=== PATIENT | male | born 1950 | race Native Hawaiian/Other Pacific Islander ===

== ENCOUNTER → 2017-05-27 | Outpatient (CLI) | payer MEDICARE, BC | END | disposition home or self-care (01) | LOC: LABWHC1 08:51 | PROVIDERS: ATTEND Internal Medicine Critical Care Medicine | DX: E11.9 Type 2 diabetes mellitus without complications (principal) | CPT/HCPCS: 36415; 83036 ==

== ENCOUNTER → 2017-10-08 | Outpatient (CLI) | payer MEDICARE, BC ==
[2017-10-08 11:56] LABS: Hemoglobin A1C 7.5 % (4.0-6.0)
== END | disposition home or self-care (01) ==
LOC: LABWHC1 07:16
PROVIDERS: ATTEND Internal Medicine Critical Care Medicine
DX: E11.9 Type 2 diabetes mellitus without complications (principal)
CPT/HCPCS: 36415; 83036

== ENCOUNTER → 2017-12-11 | Outpatient (CLI) | payer MEDICARE ==
[2017-12-11 12:52] LABS: Hemoglobin A1C 7.4 % (4.0-6.0)
== END | disposition home or self-care (01) ==
LOC: LABWHC1 07:02
PROVIDERS: ATTEND Internal Medicine Critical Care Medicine
DX: E11.9 Type 2 diabetes mellitus without complications (principal)
CPT/HCPCS: 36415; 82947; 83036

== ENCOUNTER → 2018-04-23 | Outpatient (CLI) | payer BC, MEDICARE ==
[2018-04-23 19:06] LABS: Hemoglobin A1C 7.5 % (4.0-6.0)
== END | disposition home or self-care (01) ==
LOC: LABWHC1 07:17
PROVIDERS: ATTEND Internal Medicine Critical Care Medicine
DX: E11.9 Type 2 diabetes mellitus without complications (principal)
CPT/HCPCS: 36415; 83036

== ENCOUNTER → 2018-08-06 | Outpatient (CLI) | payer MEDICARE ==
[2018-08-06 12:05] LABS: Albumin 4.3 g/dL (3.80-4.90); Albumin/Globulin Ratio 1.59 (1.20-2.10); Anion Gap 8.2 mmol/L (4.00-12.00); Carbon Dioxide 25.8 mmol/L (21.6-31.8); Globulin 2.7 g/dL (1.6-3.3); LDL Cholesterol,Calculated 89.6 mg/dL (0.0-131.0); Potassium 4.9 mmol/L (3.5-5.5); Total Bilirubin 0.7 mg/dL (0.3-1.2); VLDL Calculation 32.4 mg/dL (5.00-40.00)
[2018-08-06 14:03] LABS: Hemoglobin A1C 7.1 % (4.0-6.0)
== END | disposition home or self-care (01) ==
LOC: LABWHC1 07:07
PROVIDERS: ATTEND Internal Medicine Interventional Cardiology
DX: E78.2 Mixed hyperlipidemia (principal); I10 Essential (primary) hypertension; E11.9 Type 2 diabetes mellitus without complications
CPT/HCPCS: 36415; 80053; 80061; 83036

== ENCOUNTER → 2018-08-20 | Outpatient (CLI) | payer MEDICARE ==
[2018-08-20 08:09] LABS: HCT 45.4 % (39.0-53.0); HGB 14.8 gm/dL (13.0-17.5); MCHC 32.5 g/dL (31.0-37.0); MCV 89.2 fL (80.0-100.0); Mean Platelet Volume 8.7; Platelet Count 161 k/uL (150-450); RBC 5.09 m/uL (4.30-5.90); RDW 13.8 % (11.5-15.5); WBC 8.1 k/uL (3.8-10.6)
[2018-08-20 08:21] LABS: Potassium 4.9 mmol/L (3.5-5.1)
== END | disposition home or self-care (01) ==
LOC: LABPAT 07:31
PROVIDERS: ATTEND Internal Medicine Interventional Cardiology
DX: Z01.812 Encounter for preprocedural laboratory examination (principal); R94.39 Abnormal result of other cardiovascular function study; I10 Essential (primary) hypertension; E78.2 Mixed hyperlipidemia
CPT/HCPCS: 36415; 80051; 82565; 84520; 85027

== ENCOUNTER → 2018-09-02 | Day surgery (SDC) | payer MEDICARE ==
[2018-08-31 09:59] VITALS: BMI 28.5
[~2018-09-02] MED LIST: ALPRAZolam 0.25 MG TAB PO PRN; ALPRAZolam 0.5 MG TAB PO PRN; ASPIRIN 325 MG TAB PO ONE; ASPIRIN 325 MG TAB PO STA; ATORVASTATIN 10 MG TAB PO SCH; ATORVASTATIN 80 MG TAB PO STA; CARVEDILOL 3.125 MG TAB PO SCH; HEPARIN SODIUM 1,000 UN/ML (10ML VL) IV ONE; HEPARIN SODIUM 1,000 UN/ML (10ML VL) ONE; IOPAMIDOL-370 125ML BTL INJ ONE; LIDOCAINE 1% INJ 10MG/ML (20 ML MDV) ONE; LIDOCAINE 1% INJ 10MG/ML (20 ML MDV) SQ ONE; LISINOPRIL 5 MG TAB PO SCH; NITROGLYCERIN SL TABS 0.4 MG TAB SUBLINGUAL PRN; NON-FORMULARY DRUG (Insulin Glargine 30 UNIT) SQ SCH; PANTOPRAZOLE 40 MG TABLET PO SCH; RX INFO: IV CONTRAST WAS GIVEN 1 EACH MISC MISCELLANE PRN; SODIUM CHLORIDE 0.9% 1,000 ML IV ONE; SODIUM CHLORIDE 0.9% 1,000 ML IV SCH; SODIUM CHLORIDE 0.9% 1,000 ML in EMPTY BAG 1 BAG IV ONE; VERAPAMIL 2.5 MG/ML 2 ML AMP ONE; VERAPAMIL SYRINGE (5 MG/10 ML) INTRAARTER ONE; fentaNYL (PF) 50 MCG/ML 2 ML AMP IV ONE; fentaNYL (PF) 50 MCG/ML 2 ML AMP ONE
[2018-09-02 11:05] LABS: Glucose,Whole Blood 148 mg/dL (75-99)
[2018-09-02 11:10] VITALS: TEMP 97.8
--- NOTE | 2018-09-02 13:40 | CC ---
CARDIAC CATHETERIZATION REPORT Mr. Fairbanks is a 67-year-old male with known history of hypertension, hyperlipidemia, diabetes mellitus, who recently was found to have worsening in his left ventricular systolic function and evidence of inferior wall defect. In view of that, recommendation was made regarding cardiac catheterization. The procedure as well as the risks and complications were discussed with the patient who is in full understanding and agreement. PROCEDURE: Patient was brought to clinical laboratory technologist in a fasting semi-sedated state after receiving fentanyl and Benadryl and achieving moderate conscious sedated state. Using Xylocaine anesthesia in the Seldinger technique, a 6-Thai sheath was introduced in the right radial artery. Selective right and left angiography was performed using 5-Thai 3.5 bend right and left Reema catheter. Multiple views of the coronary artery including hemiaxial views obtained. Following that 5-Thai tight pigtail catheter was introduced in the left ventricle and a 30-degree MENCHACA view of the left ventricle was obtained. Following that, catheter and sheath were removed. Hemostasis was obtained with deployment of a TR band. There was no immediate complication. Patient is returned to his room in stable condition. Of note, the patient received 5000 units of intravenous heparin as well as intra-arterial verapamil. FINDINGS: LEFT MAIN: This is a large-sized vessel trifurcating left circumflex, left anterior descending artery and ramus intermedius. Left main coronary artery has no evidence of high-grade stenosis. LEFT ANTERIOR DESCENDING ARTERY: This is a large-sized vessel reaching toward the apex with a wraparound apex segment giving rise to a large diagonal branch proximally. The left anterior descending artery has a 20% plaque in the mid segment without any evidence of high-grade stenosis. LEFT CIRCUMFLEX: This is a large nondominant vessel that has no evidence of high-grade stenosis. RAMUS INTERMEDIUS: This is a moderately-sized vessel that has no evidence of high-grade stenosis. RIGHT CORONARY ARTERY: This is a dominant vessel large in caliber bifurcating distally PDA and posterolateral segment and branches, tortuous proximally. The right coronary artery in mid segment has a 20% to 30% plaque. The rest of the vessel has no high- grade stenosis LEFT VENTRICULOGRAM: Left ventriculogram was performed in 30-degree MENCHACA view and revealed a mild global hypokinesis. The estimated ejection fraction 45%. There was arrhythmia induced mitral regurgitation. HEMODYNAMICS: There was no gradient across the aortic valve. The left ventricular end- diastolic pressure was 16 to18 mmHg. CONCLUSION: 1. Mild coronary disease involving the left anterior descending artery and the right coronary artery. 2. Mildly impaired left ventricular systolic function. RECOMMENDATION: In view of finding anatomy, recommend to continue medical therapy with aggressive coronary risk modifications that have been initiated. Those findings and recommendations were discussed with the patient and his family and are in full understanding and agreement. Duration of procedure is 20 minutes. MMODL / IJN: [id number] /
[2018-09-02 15:38] LABS: Glucose,Whole Blood 120 mg/dL (75-99)
[2018-09-02 18:29] VITALS: RESP 16
[2018-09-02 18:30] VITALS: BP 149/94; PULSE 63
== END | disposition home or self-care (01) ==
LOC: CATHCVL 10:35
PROVIDERS: ATTEND Internal Medicine Interventional Cardiology
DX: I25.10 Atherosclerotic heart disease of native coronary artery without angina pectoris (principal); I42.8 Other cardiomyopathies; I34.0 Nonrheumatic mitral (valve) insufficiency; I12.9 Hypertensive chronic kidney disease with stage 1 through stage 4 chronic kidney disease, or unspecified chronic kidney disease; E11.22 Type 2 diabetes mellitus with diabetic chronic kidney disease; N18.9 Chronic kidney disease, unspecified; Z79.4 Long term (current) use of insulin; E78.2 Mixed hyperlipidemia; Z72.0 Tobacco use; M19.90 Unspecified osteoarthritis, unspecified site; Z79.82 Long term (current) use of aspirin; Z79.899 Other long term (current) drug therapy; Z88.6 Allergy status to analgesic agent
CPT/HCPCS: 93458; C1894; C1769; J2001; J3010; J1644; Q9967

== ENCOUNTER → 2018-11-02 | Outpatient (CLI) | payer MEDICARE ==
[2018-11-02 07:27] LABS: Basophils # (A) 0.1 k/uL (0-0.2); Basophils % (A) 1 %; Eosinophils # (A) 0.3 k/uL (0-0.7); Eosinophils % (A) 4 %; HCT 44.5 % (39.0-53.0); Lymphocytes # (A) 2.3 k/uL (1.0-4.8); Lymphocytes % (A) 30 %; MCH 29.4 pg (25.0-35.0); MCHC 33.7 g/dL (31.0-37.0); MCV 87.3 fL (80.0-100.0); Mean Platelet Volume 8.5; Monocytes # (A) 0.5 k/uL (0-1.0); Monocytes % (A) 6 %; Neutrophils # (A) 4.4 k/uL (1.3-7.7); Neutrophils % (A) 57 %; Platelet Count 176 k/uL (150-450); RBC 5.09 m/uL (4.30-5.90); RDW 13.6 % (11.5-15.5); WBC 7.8 k/uL (3.8-10.6)
[2018-11-02 07:34] LABS: Appearance,Urine Clear (Clear); Bilirubin,Urine Negative (Negative); Blood,Urine Negative (Negative); Color,Urine Light Yellow; Glucose,Urine (UA) Negative (Negative); Ketones,Urine Negative (Negative); Leukocyte Esterase,Urine Negative (Negative); Mucus,Urine Rare /hpf; Nitrite,Urine Negative (Negative); Protein,Urine 1+ (Negative); RBC,Urine 1 /hpf (0-5); Urobilinogen,Urine <2.0 mg/dL (<2.0); WBC,Urine <1 /hpf (0-5)
[2018-11-02 11:17] LABS: Iron Saturation 18.82 (15.00-50.00)
[2018-11-02 11:25] LABS: Vitamin D 25 Hydroxy 19.9 ng/mL (30.0-100.0)
[2018-11-02 11:30] LABS: Albumin 4.3 g/dL (3.80-4.90); Albumin/Globulin Ratio 1.72 (1.60-3.17); Anion Gap 8.1 mmol/L (4.00-12.00); Calcium 9.3 mg/dL (8.7-10.3); Carbon Dioxide 22.9 mmol/L (21.6-31.8); Globulin 2.5 g/dL (1.6-3.3); Phosphorus 2.9 mg/dL (2.4-5.1); Potassium 4.6 mmol/L (3.5-5.5); Total Bilirubin 0.9 mg/dL (0.3-1.2); Total Protein 6.8 g/dL (6.2-8.2); Uric Acid 7.8 mg/dL (3.7-8.7)
[2018-11-02 11:32] LABS: Hemoglobin A1C 7.5 % (4.0-6.0)
[2018-11-02 11:49] LABS: Parathyroid Hormone Intact 91.1 pg/mL (14.0-72.0)
== END | disposition home or self-care (01) ==
LOC: LABWHC1 06:51
PROVIDERS: ATTEND Internal Medicine Critical Care Medicine
DX: I10 Essential (primary) hypertension (principal); E11.9 Type 2 diabetes mellitus without complications; N28.89 Other specified disorders of kidney and ureter
CPT/HCPCS: 36415; 80053; 81001; 82306; 82728; 83036; 83540; 83550; 83735; 83970; 84100; 84550; 85025

== ENCOUNTER → 2018-11-26 | Outpatient (CLI) | payer MEDICARE ==
--- NOTE | 2018-11-26 13:16 | US ---
EXAMINATION TYPE: US kidneys/renal and bladder DATE OF EXAM: 11/26/2018 COMPARISON: 09/28/2014 CLINICAL HISTORY: N18.3 Chronic kidney disease stage 3; diabetic, agent orange exposure, stage 3 CKD EXAM MEASUREMENTS: Right Kidney: 10.6 x 5.8 x 5.7 cm Left Kidney: 10.7 x 6.2 x 4.9 cm Post Void Residual Volume: 127.7 mL Right Kidney: multiple renal cysts with largest simple cyst noted at mid pole = 3.5 x 3.7 x 3.5cm Left Kidney: prominent renal pelvis at 1.3cm. Bladder: wnl Bilateral Jets seen: yes Normal Post Void Residual: no as volume is greater than 50.0ml. No nephrolithiasis is seen. The urinary bladder is anechoic. Bilateral ureteral jets are seen. IMPRESSION: 1. There is increased renal cortical echogenicity correlate for chronic medical renal disease. 2. Right renal cysts which have a simple appearance. 3. Minimal left pelvocaliectasis.
== END | disposition home or self-care (01) ==
LOC: RADUSWWP 12:26
PROVIDERS: ATTEND Internal Medicine Nephrology
DX: N28.1 Cyst of kidney, acquired (principal); N18.3 Chronic kidney disease, stage 3 (moderate)
CPT/HCPCS: 76770

== ENCOUNTER 2019-02-05 13:59 | Emergency (ER) | payer MEDICARE ==
[2019-02-05 14:31] VITALS: BP 119/82; PULSE 98; RESP 18; TEMP 98.2
[2019-02-05] MEDS ORDERED: LIDOCAINE 1% INJ 10MG/ML (20 ML MDV) SQ ONE (14:42)
--- NOTE | 2019-02-05 15:37 | ED ---
General Adult HPI - General Chief complaint: Wound/Laceration Stated complaint: Rt middle finger lac Time Seen by Provider: 02/05/19 14:31 Source: patient Mode of arrival: ambulatory Limitations: no limitations - History of Present Illness Initial comments: Patient is 68-year-old male presents emergency Department with a laceration to his right third finger. Patient reports he was moving a metal objects when one of them slipped and lacerated his finger. Patient reports mild bleeding at the site of injury. Patient reports full range of motion. Patient is not on blood thinners. Patient reports his tetanus status is up-to-date. Patient denies any numbness or tingling at the site of injury. Patient reports the pain is a 4 throbbing. Patient denies taking any medication to alleviate his symptoms. - Related Data Home Medications Medication Instructions Recorded Confirmed Carvedilol [Coreg] 3.125 mg PO BID 08/31/18 09/02/18 Insulin Glargine [Lantus] 30 unit SQ HS 08/31/18 09/02/18 Lisinopril [Prinivil] 5 mg PO DAILY 08/31/18 09/02/18 Pantoprazole [Protonix] 40 mg PO DAILY 08/31/18 09/02/18 Rosuvastatin [Crestor] 5 mg PO DAILY 08/31/18 09/02/18 Allergies Allergy/AdvReac Type Severity Reaction Status Date / Time aspirin Allergy sneezing & Verified 02/05/19 14:28 runny nose. Review of Systems ROS Statement: Those systems with pertinent positive or pertinent negative responses have been documented in the HPI. ROS Other: All systems not noted in ROS Statement are negative. Past Medical History Past Medical History: GERD/Reflux, Hypertension, Renal Disease History of Any Multi-Drug Resistant Organisms: None Reported Past Surgical History: Hernia Repair, Joint Replacement, Orthopedic Surgery Additional Past Surgical History / Comment(s): right testical removed, hiatle hernia repair Past Psychological History: No Psychological Hx Reported Smoking Status: Never smoker Past Alcohol Use History: None Reported General Exam - General Exam Comments Initial Comments: General: Well-developed well-nourished distress HEENT: Normocephalic/atraumatic, PERLL, pharynx erythema, swallowing well, EAC no erythema, no exudates, TM clear, no cervical lymph nodes Neck: Supple, nontender, trachea midline Chest/Lungs: Normal respirations, no signs of respiratory distress clear to auscultation bilaterally no wheezes, rales, rhonchi Cardiac: Regular rate and rhythm, normal S1-S2, no murmurs rubs or gallops Abdomen/GI: Soft nontender, bowel sounds equal or quadrant x4, no guarding, no rebound no CVA tenderness Musculoskeletal: Upper 57 a laceration on the palmar aspect of the right third distal digit, no active bleeding, full range of motion, no foreign bodies detected, Skin: Warmth, no rashes or lesions, no cyanosis or diaphoresis Neurologic: AAO x 3, CN 2-12 intact, Psychiatric: Mood and affect normal, judgment normal Limitations: no limitations Course Vital Signs 02/05/19 14:28 Temperature 98.2 F Pulse Rate 98 Respiratory 18 Rate Blood Pressure 119/82 O2 Sat by Pulse 98 Oximetry Procedures - Laceration Laceration #1 Consent Obtained: verbal consent Indication: laceration Site: hand (Right third digit) Size (cm): 1 Description: linear Depth: simple, single layer Sedation/Analgesia: none Anesthetic Used: lidocaine 1% Anesthesia Technique: local infiltration Amount (mls): 5 Pre-repair: irrigated extensively Type of Sutures: nylon Size of Sutures: 4-0 Number of Sutures: 5 Technique: simple, interrupted Patient Tolerated Procedure: well Medical Decision Making - Medical Decision Making Patient is a 68-year-old male presenting to emergency Department with a laceration to the palmar aspect of his right third digit. The laceration site was repaired with 3 sutures. Patient tolerated the procedure well. The laceration site was thoroughly irrigated. Patient advised to follow-up with primary care. Patient advised to return to emergency department in 10 days for suture removal. Strict return parameters were thoroughly discussed with patient was understanding and agreeable. Case discussed with physician. Disposition Clinical Impression: Laceration Disposition: HOME SELF-CARE Condition: Stable Instructions (If sedation given, give patient instructions): Care For Your Stitches (DC), Laceration (DC) Additional Instructions: Please follow with primary care. Please return to emergency department for suture removal 10 days or sooner if symptoms worsen. Please follow proper wound care structures. Is patient prescribed a controlled substance at d/c from ED?: No Referrals: Angelito Johns DO [Primary Care Provider] - 1-2 days Time of Disposition: 15:37
== END 2019-02-05 15:52 | disposition home or self-care (01) ==
LOC: EC 13:59
DX: S61.212A Laceration without foreign body of right middle finger without damage to nail, initial encounter (principal); I10 Essential (primary) hypertension; Z79.02 Long term (current) use of antithrombotics/antiplatelets; Z79.4 Long term (current) use of insulin; Z79.899 Other long term (current) drug therapy; Z88.6 Allergy status to analgesic agent; W26.8XXA Contact with other sharp object(s), not elsewhere classified, initial encounter
CPT/HCPCS: 99282; 12001; J2001

== ENCOUNTER → 2019-08-05 | Outpatient (CLI) | payer MEDICARE ==
[2019-08-05 16:33] LABS: African American GFR (CKD) 46.3 (60.0-200.0); Albumin 4.1 g/dL (3.80-4.90); Albumin/Globulin Ratio 1.86 (1.60-3.17); Anion Gap 8.4 mmol/L (4.00-12.00); BUN/Creat Ratio 14.12 Ratio (12.00-20.00); Carbon Dioxide 24.6 mmol/L (21.6-31.8); Chol/HDL Ratio 3.14; Globulin 2.2 g/dL (1.6-3.3); LDL Cholesterol,Calculated 71.2 mg/dL (0.0-131.0); Potassium 4.7 mmol/L (3.5-5.5); Total Bilirubin 0.5 mg/dL (0.2-1.2); Total Protein 6.3 g/dL (6.2-8.2); VLDL Calculation 20.8 mg/dL (5.00-40.00)
[2019-08-05 17:55] LABS: Urine Creatinine 41.5 mg/dL
[2019-08-05 19:08] LABS: Hemoglobin A1C 6.6 % (4.0-6.0)
== END | disposition home or self-care (01) ==
LOC: LABWHC1 07:34
PROVIDERS: ATTEND Internal Medicine
DX: E11.65 Type 2 diabetes mellitus with hyperglycemia (principal)
CPT/HCPCS: 36415; 80053; 80061; 82043; 82570; 83036

== ENCOUNTER → 2019-08-26 | Outpatient (CLI) | payer MEDICARE ==
[2019-08-26 08:29] LABS: Basophils % (A) 1 %; Eosinophils # (A) 0.4 k/uL (0-0.7); Eosinophils % (A) 5 %; HCT 44.4 % (39.0-53.0); HGB 14.5 gm/dL (13.0-17.5); Lymphocytes # (A) 2.2 k/uL (1.0-4.8); Lymphocytes % (A) 28 %; MCH 29.8 pg (25.0-35.0); MCHC 32.8 g/dL (31.0-37.0); MCV 90.9 fL (80.0-100.0); Monocytes # (A) 0.3 k/uL (0-1.0); Monocytes % (A) 4 %; Neutrophils # (A) 4.6 k/uL (1.3-7.7); Neutrophils % (A) 60 %; Platelet Count 172 k/uL (150-450); RBC 4.88 m/uL (4.30-5.90); RDW 13.6 % (11.5-15.5); WBC 7.7 k/uL (3.8-10.6)
[2019-08-26 08:38] LABS: Appearance,Urine Clear (Clear); Bilirubin,Urine Negative (Negative); Blood,Urine Negative (Negative); Color,Urine Light Yellow; Glucose,Urine (UA) 4+ (Negative); Ketones,Urine Negative (Negative); Leukocyte Esterase,Urine Negative (Negative); Nitrite,Urine Negative (Negative); PH, Urine 6.5 (5.0-8.0); Protein,Urine Trace (Negative); Specific Gravity,Urine 1.009 (1.001-1.035); Urobilinogen,Urine <2.0 mg/dL (<2.0)
[2019-08-26 09:25] LABS: Protein/Creatinine Ratio,Urine 0.343
[2019-08-26 16:01] LABS: % Iron Saturation 17.8 (15.00-50.00); African American GFR (CKD) 40.5 (60.0-200.0); Albumin 4.1 g/dL (3.80-4.90); Anion Gap 8.3 mmol/L (4.00-12.00); BUN/Creat Ratio 14.21 Ratio (12.00-20.00); Calcium 8.6 mg/dL (8.7-10.3); Carbon Dioxide 24.7 mmol/L (21.6-31.8); Magnesium 2.4 mg/dL (1.5-2.4); Non-African American GFR(CKD) 34.9 (60.0-200.0); Phosphorus 3.8 mg/dL (2.4-5.1); Potassium 4.7 mmol/L (3.5-5.5); Uric Acid 6.4 mg/dL (3.7-8.7)
[2019-08-26 16:10] LABS: Ferritin 29.8 ng/mL (22.0-322.0)
== END | disposition home or self-care (01) ==
LOC: LABWHC1 07:28
PROVIDERS: ATTEND Internal Medicine Nephrology
DX: E05.80 Other thyrotoxicosis without thyrotoxic crisis or storm (principal); N18.3 Chronic kidney disease, stage 3 (moderate); D63.1 Anemia in chronic kidney disease; M10.9 Gout, unspecified; N39.0 Urinary tract infection, site not specified; R80.9 Proteinuria, unspecified
CPT/HCPCS: 36415; 80048; 81003; 82040; 82306; 82570; 82728; 83540; 83550; 83735; 83970; 84100; 84156; 84550; 85025

== ENCOUNTER → 2019-10-01 | Outpatient (CLI) | payer MEDICARE ==
[2019-10-01 11:10] LABS: African American GFR (CKD) 38.1 (60.0-200.0); Anion Gap 10.1 mmol/L (4.00-12.00); Calcium 9.4 mg/dL (8.7-10.3); Carbon Dioxide 25.9 mmol/L (21.6-31.8); Non-African American GFR(CKD) 32.8 (60.0-200.0); Potassium 4.9 mmol/L (3.5-5.5)
[2019-10-01 11:11] LABS: Urine Creatinine 54.9 mg/dL
[2019-10-01 17:44] LABS: Hemoglobin A1C 6.5 % (4.0-6.0)
== END | disposition home or self-care (01) ==
LOC: LABWHC1 07:11
PROVIDERS: ATTEND Internal Medicine
DX: E11.65 Type 2 diabetes mellitus with hyperglycemia (principal)
CPT/HCPCS: 36415; 80048; 82043; 82570; 83036

== ENCOUNTER → 2019-12-20 | Outpatient (CLI) | payer MEDICARE ==
[2019-12-20 07:56] LABS: Basophils # (A) 0.1 k/uL (0-0.2); Basophils % (A) 1 %; Eosinophils # (A) 0.3 k/uL (0-0.7); Eosinophils % (A) 4 %; HCT 48.4 % (39.0-53.0); HGB 15.3 gm/dL (13.0-17.5); Lymphocytes # (A) 1.8 k/uL (1.0-4.8); Lymphocytes % (A) 23 %; MCH 29.3 pg (25.0-35.0); MCHC 31.6 g/dL (31.0-37.0); MCV 92.7 fL (80.0-100.0); Mean Platelet Volume 8.9; Monocytes # (A) 0.4 k/uL (0-1.0); Monocytes % (A) 5 %; Neutrophils # (A) 5.1 k/uL (1.3-7.7); Neutrophils % (A) 65 %; Platelet Count 174 k/uL (150-450); RBC 5.22 m/uL (4.30-5.90); RDW 13.6 % (11.5-15.5); WBC 7.8 k/uL (3.8-10.6)
[2019-12-20 07:59] LABS: Appearance,Urine Clear (Clear); Bilirubin,Urine Negative (Negative); Blood,Urine Negative (Negative); Color,Urine Light Yellow; Glucose,Urine (UA) 4+ (Negative); Ketones,Urine Negative (Negative); Leukocyte Esterase,Urine Negative (Negative); Nitrite,Urine Negative (Negative); PH, Urine 6.5 (5.0-8.0); Protein,Urine Negative (Negative); Specific Gravity,Urine 1.007 (1.001-1.035); Urobilinogen,Urine <2.0 mg/dL (<2.0)
[2019-12-20 09:35] LABS: Protein/Creatinine Ratio,Urine 0.405
[2019-12-20 15:16] LABS: % Iron Saturation 20.29 (15.00-50.00); African American GFR (CKD) 35.6 (60.0-200.0); Albumin 4.1 g/dL (3.80-4.90); Anion Gap 9.1 mmol/L (4.00-12.00); BUN/Creat Ratio 16.19 Ratio (12.00-20.00); Calcium 8.9 mg/dL (8.7-10.3); Carbon Dioxide 22.9 mmol/L (21.6-31.8); Magnesium 2.2 mg/dL (1.5-2.4); Non-African American GFR(CKD) 30.7 (60.0-200.0); Phosphorus 3.6 mg/dL (2.4-5.1); Potassium 4.9 mmol/L (3.5-5.5); Uric Acid 6.9 mg/dL (3.7-8.7)
[2019-12-20 15:25] LABS: Ferritin 39.3 ng/mL (22.0-322.0)
== END | disposition home or self-care (01) ==
LOC: LABWHC1 07:16
PROVIDERS: ATTEND Nurse Practitioner Family
DX: E05.80 Other thyrotoxicosis without thyrotoxic crisis or storm (principal); N18.3 Chronic kidney disease, stage 3 (moderate); M10.9 Gout, unspecified; N39.0 Urinary tract infection, site not specified; R80.9 Proteinuria, unspecified; D64.9 Anemia, unspecified
CPT/HCPCS: 36415; 80048; 81003; 82040; 82306; 82570; 82728; 83540; 83550; 83735; 83970; 84100; 84156; 84550; 85025

== ENCOUNTER → 2020-01-26 | Outpatient (CLI) | payer MEDICARE ==
[2020-01-26 16:22] LABS: African American GFR (CKD) 33.7 (60.0-200.0); Anion Gap 10.1 mmol/L (4.00-12.00); BUN/Creat Ratio 15.91 Ratio (12.00-20.00); Calcium 9.1 mg/dL (8.7-10.3); Carbon Dioxide 22.9 mmol/L (21.6-31.8); Non-African American GFR(CKD) 29.1 (60.0-200.0); Potassium 5.1 mmol/L (3.5-5.5)
[2020-01-26 18:28] LABS: Hemoglobin A1C 6.5 % (4.0-6.0)
== END | disposition home or self-care (01) ==
LOC: LABWHC1 07:40
PROVIDERS: ATTEND Internal Medicine
DX: E11.65 Type 2 diabetes mellitus with hyperglycemia (principal)
CPT/HCPCS: 36415; 80048; 82043; 82570; 83036

== ENCOUNTER → 2020-04-20 | Outpatient (CLI) | payer MEDICARE ==
[2020-04-20 07:46] LABS: Basophils # (A) 0.1 k/uL (0-0.2); Basophils % (A) 1 %; Eosinophils # (A) 0.4 k/uL (0-0.7); Eosinophils % (A) 5 %; HCT 48.1 % (39.0-53.0); HGB 15.7 gm/dL (13.0-17.5); Lymphocytes % (A) 28 %; MCH 30.7 pg (25.0-35.0); MCHC 32.6 g/dL (31.0-37.0); Mean Platelet Volume 8.9; Monocytes # (A) 0.4 k/uL (0-1.0); Monocytes % (A) 6 %; Neutrophils # (A) 4.3 k/uL (1.3-7.7); Neutrophils % (A) 59 %; Platelet Count 161 k/uL (150-450); RBC 5.12 m/uL (4.30-5.90); RDW 13.2 % (11.5-15.5); WBC 7.3 k/uL (3.8-10.6)
[2020-04-20 08:06] LABS: Appearance,Urine Clear (Clear); Bilirubin,Urine Negative (Negative); Blood,Urine Negative (Negative); Color,Urine Light Yellow; Glucose,Urine (UA) 4+ (Negative); Ketones,Urine Negative (Negative); Leukocyte Esterase,Urine Negative (Negative); Nitrite,Urine Negative (Negative); Protein,Urine Negative (Negative); Specific Gravity,Urine 1.009 (1.001-1.035); Urobilinogen,Urine <2.0 mg/dL (<2.0)
[2020-04-20 08:44] LABS: Protein/Creatinine Ratio,Urine 0.318
[2020-04-20 11:05] LABS: % Iron Saturation 23.21 (15.00-50.00); African American GFR (CKD) 40.2 (60.0-200.0); Albumin 4.1 g/dL (3.80-4.90); Anion Gap 6.8 mmol/L (4.00-12.00); BUN/Creat Ratio 16.84 Ratio (12.00-20.00); Calcium 9.3 mg/dL (8.7-10.3); Carbon Dioxide 23.2 mmol/L (21.6-31.8); Magnesium 2.1 mg/dL (1.5-2.4); Non-African American GFR(CKD) 34.7 (60.0-200.0); Phosphorus 3.5 mg/dL (2.4-5.1); Potassium 4.7 mmol/L (3.5-5.5); Uric Acid 6.6 mg/dL (3.7-8.7)
[2020-04-20 11:13] LABS: Ferritin 33.4 ng/mL (22.0-322.0)
== END | disposition home or self-care (01) ==
LOC: LABWHC1 07:10
PROVIDERS: ATTEND Nurse Practitioner Family
DX: E55.9 Vitamin D deficiency, unspecified (principal); E05.80 Other thyrotoxicosis without thyrotoxic crisis or storm; D63.1 Anemia in chronic kidney disease; N18.30 Chronic kidney disease, stage 3 unspecified; M10.9 Gout, unspecified; N39.0 Urinary tract infection, site not specified
CPT/HCPCS: 36415; 80048; 81003; 82040; 82306; 82570; 82728; 83540; 83550; 83735; 83970; 84100; 84156; 84550; 85025

== ENCOUNTER → 2020-04-25 | Outpatient (CLI) | payer MEDICARE ==
[2020-04-25 11:08] LABS: Chol/HDL Ratio 3.16; LDL Cholesterol,Calculated 79.8 mg/dL (0.0-131.0); VLDL Calculation 15.2 mg/dL (5.00-40.00)
[2020-04-25 11:16] LABS: T4, Free (Free Thyroxine) 1.2 ng/dL (0.80-1.80)
[2020-04-25 11:17] LABS: PSA Annual Screen 1.3 ng/mL (0.0-4.0)
== END | disposition home or self-care (01) ==
LOC: LABWHC1 07:26
PROVIDERS: ATTEND Internal Medicine Critical Care Medicine
DX: E78.5 Hyperlipidemia, unspecified (principal); E13.42 Other specified diabetes mellitus with diabetic polyneuropathy; C62.90 Malignant neoplasm of unspecified testis, unspecified whether descended or undescended; I10 Essential (primary) hypertension; N40.0 Benign prostatic hyperplasia without lower urinary tract symptoms; N28.89 Other specified disorders of kidney and ureter; Z12.5 Encounter for screening for malignant neoplasm of prostate
CPT/HCPCS: 84439; 80061; 84443; 36415; G0103

== ENCOUNTER → 2021-04-24 | Outpatient (CLI) | payer MEDICARE ==
[2021-04-24 07:49] LABS: Creatinine,Urine Random 47.8 mg/dL; Protein/Creatinine Ratio,Urine 0.377
[2021-04-24 08:31] LABS: Appearance,Urine Clear (Clear); Bilirubin,Urine Negative (Negative); Blood,Urine Negative (Negative); Color,Urine Light Yellow; Glucose,Urine (UA) 4+ (Negative); Ketones,Urine Negative (Negative); Leukocyte Esterase,Urine Negative (Negative); Nitrite,Urine Negative (Negative); PH, Urine 6.5 (5.0-8.0); Protein,Urine Negative (Negative); Urobilinogen,Urine <2.0 mg/dL (<2.0)
[2021-04-24 16:15] LABS: Basophils # (A) 0.05 X 10*3/uL (0.00-0.10); Basophils % (A) 0.5 %; Eosinophils % (A) 3.8 %; HCT 46.2 % (39.6-50.0); HGB 14.8 g/dL (13.0-17.0); Lymphocytes # (A) 2.03 X 10*3/uL (0.90-5.00); Lymphocytes % (A) 19.2 %; MCH 30.1 pg (27.0-32.0); MCV 93.9 fL (80.0-97.0); Mean Platelet Volume 11.9 fL (9.5-12.2); Monocytes # (A) 0.76 X 10*3/uL (0.20-1.00); Monocytes % (A) 7.2 %; Neutrophils # (A) 7.28 X 10*3/uL (1.80-7.70); Neutrophils % (A) 68.9 %; Platelet Count 166 X 10*3/uL (140-440); RBC 4.92 X 10*6/uL (4.40-5.60); RDW 13.1 % (11.5-14.5); WBC 10.56 X 10*3/uL (4.50-10.00)
[2021-04-24 17:44] LABS: % Iron Saturation 21.9 (15.00-50.00); African American GFR (CKD) 36.2 (60.0-200.0); BUN/Creat Ratio 13.59 Ratio (12.00-20.00); Calcium 8.9 mg/dL (8.7-10.3); Carbon Dioxide 20.8 mmol/L (21.6-31.8); Ferritin 45.7 ng/mL (22.0-322.0); Magnesium 2.3 mg/dL (1.5-2.4); Non-African American GFR(CKD) 31.2 (60.0-200.0); Phosphorus 3.2 mg/dL (2.4-5.1); Potassium 5.1 mmol/L (3.5-5.5); Uric Acid 6.7 mg/dL (3.7-8.7)
== END | disposition home or self-care (01) ==
LOC: LABWHC1 07:16
PROVIDERS: ATTEND Nurse Practitioner Family
DX: E05.80 Other thyrotoxicosis without thyrotoxic crisis or storm (principal); N18.30 Chronic kidney disease, stage 3 unspecified; R80.9 Proteinuria, unspecified; D64.9 Anemia, unspecified; N39.0 Urinary tract infection, site not specified; M10.9 Gout, unspecified
CPT/HCPCS: 36415; 80048; 81003; 82040; 82306; 82570; 82728; 83540; 83550; 83735; 83970; 84100; 84156; 84550; 85025

== ENCOUNTER → 2023-12-01 | Outpatient (CLI) | payer MEDICARE ==
--- NOTE | 2023-12-04 22:23 | CT ---
EXAMINATION TYPE: CT ChestAbdPelvis wo con DATE OF EXAM: 12/04/2023 INDICATION: Lytic lesions COMPARISON: 03/22/2013 CT DLP: 1337 mGycm CONTRAST: Performed without Oral Contrast. TECHNIQUE: Axial images at 5 mm thick sections. Reconstructed images in the coronal plane. Delayed images through the kidneys. FINDINGS: CT CHEST: There is a debris-filled esophagus extending to the stomach. This is dilated and extends from the tho racic inlet. Finding appears stable from comparison Portion of the thyroid visualized is normal. Scattered infiltrates are within the anterior and posterior midlungs bilaterally. Some pulmonary fibr osis dependent lung bases. No enlarged mediastinal or hilar adenopathy is evident. The ascending aorta diameter at the level of the main pulmonary artery is 4.4 cm. The main pulmonary artery diameter at the bifurcation is 3.5 cm. Coronary artery calcifications present CT ABDOMEN: Liver: Normal Spleen: Normal Pancreas: Normal Adrenal glands: The adrenal glands are normal. Gallbladder: Normal Kidneys: No masses are evident. No hydronephrosis is present. 4.7 cm lateral upper pole right renal cyst nursed cyst inferior pole right kidney measuring 4.0 and 2.9 cm. No renal stones are evident. Aorta: Vascular calcification is within the aorta. Inferior vena cava: Normal. CT PELVIS: Loops of bowel within the abdomen and pelvis are normal. Studies without oral contrast limiting b owel evaluation. Appendix: Normal as visualized. Urinary bladder: Normal. Genitourinary structures: Prostate is prominent Osseous structures: No suspicious lytic or sclerotic lesions. Septi degenerative changes are in the l ower lumbar spine. C2 is out of the field of view. IMPRESSION: 1. No suspicious primary or metastatic lesions.
== END | disposition home or self-care (01) ==
LOC: RADCTMAIN 11:30
PROVIDERS: ATTEND Orthopaedic Surgery
CPT/HCPCS: 71250; 74176

== ENCOUNTER → 2023-12-19 | Outpatient (CLI) | payer MEDICARE ==
--- NOTE | 2023-12-20 08:18 | MR ---
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 COMPARISON: 04/24/2023. TECHNIQUE: Multi planar, multi sequence imaging was performed utilizing: T1-weighted, T2-weighted, an d turbo inversion recovery imaging of the cervical spine. IV Contrast: 8.5 cc Gadavist (none if empty) FINDINGS: Alignment: The cervical vertebral bodies have preserved heights. Straightening of the cervical alignm ent. Bones: Scattered Modic endplate changes with osteophytes and disc space narrowing. Multilevel degener ative disc disease is noted and most pronounced at the C5-C7 vertebral levels. No abnormal postcontrast enhancement. Cord: The spinal cord is unremarkable with regards to their signal intensity and morphology. Discs: Intervertebral disc signal is maintained. C2-C3: No significant disc pathology. The spinal canal is patent. Bilateral facet and uncovertebral joint arthropathy are present with mild bilateral neural foraminal stenosis. C3-C4: No significant disc pathology. The spinal canal is patent. Bilateral facet and uncovertebral joint arthropathy are present with mild to moderate bilateral neural foraminal stenosis. C4-C5: A disc osteophyte complex is present with mild spinal canal stenosis. Bilateral facet and unc overtebral joint arthropathy are present with moderate left and mild to moderate neural foraminal zully nosis. C5-C6: A disc osteophyte complex is present with mild spinal canal stenosis. Bilateral facet and unc overtebral joint arthropathy are present with moderate to severe bilateral neural foraminal stenosis. C6-C7: A disc osteophyte complex is present with moderate spinal canal stenosis. Bilateral facet and uncovertebral joint arthropathy are present with moderate to severe bilateral neural foraminal steno sis. C7-T1: No significant disc pathology. The spinal canal is patent. No neural foraminal stenosis. Other: None. IMPRESSION: 1. Moderate spinal canal stenosis at the level of C6 secondary to opacify complexes and posterior ost eophyte. No evidence for disc herniation. No abnormal postcontrast enhancement. 2. Moderate disc degeneration with associated osteoarthritic changes. Neural foraminal foraminal sten osis worse at C5-6 and C6-C7 with moderate to severe bilateral and moderate left C4-C5.
== END | disposition home or self-care (01) ==
LOC: RADMRIMAIN 18:51
PROVIDERS: ATTEND Orthopaedic Surgery
DX: M47.812 Spondylosis without myelopathy or radiculopathy, cervical region (principal); M50.30 Other cervical disc degeneration, unspecified cervical region; M99.71 Connective tissue and disc stenosis of intervertebral foramina of cervical region; M25.78 Osteophyte, vertebrae
CPT/HCPCS: 72156; A9585

== ENCOUNTER → 2024-01-23 | Outpatient (CLI) | payer MEDICARE ==
[2024-01-23 10:21] LABS: Basophils # (A) 0.04 X 10*3/uL (0.00-0.10); Basophils % (A) 0.5 %; Eosinophils # (A) 0.22 X 10*3/uL (0.04-0.35); Eosinophils % (A) 2.9 %; HCT 46.9 % (39.6-50.0); HGB 15.3 g/dL (13.0-17.0); Lymphocytes # (A) 1.78 X 10*3/uL (0.90-5.00); Lymphocytes % (A) 23.6 %; MCH 30.3 pg (27.0-32.0); MCHC 32.6 g/dL (32.0-37.0); MCV 92.9 FL (80.0-97.0); Mean Platelet Volume 11.4 FL (9.5-12.2); Monocytes # (A) 0.55 X 10*3/uL (0.20-1.00); Monocytes % (A) 7.3 %; NRBC Per 100 WBC 0 X 10*3/uL (0.00-0.01); Neutrophils % (A) 64.9 %; Platelet Count 176 X 10*3/uL (140-440); RBC 5.05 X 10*6/uL (4.40-5.60); RDW 13.5 % (11.5-14.5); WBC 7.55 X 10*3/uL (4.50-10.00)
[2024-01-23 11:27] LABS: Creatinine,Urine Random 55.9 mg/dL; Protein/Creatinine Ratio,Urine 0.483
[2024-01-23 12:19] LABS: Appearance,Urine Clear (Clear); Bilirubin,Urine Negative (Negative); Blood,Urine Negative (Negative); Color,Urine Yellow (Yellow); Ketones,Urine Negative (Negative); Nitrite,Urine Negative (Negative); Specific Gravity,Urine 1.017 (1.001-1.030); Urobilinogen,Urine 0.2 E.U./DL
[2024-01-23 15:46] LABS: % Iron Saturation 18.75 (15.00-50.00); Albumin 4.1 g/dL (3.8-4.9); Blood Urea Nitrogen 20.8 mg/dL (9.0-27.0); Calcium 8.9 mg/dL (8.7-10.3); Carbon Dioxide 21.7 mmol/L (21.6-31.8); Chloride 104 mmol/L (96-109); Ferritin 59.2 ng/mL (22.0-322.0); Glucose 177 mg/dL (70-110); Iron 69 UG/DL (65-175); Sodium 138 mmol/L (135-145); Total Iron Binding Capacity 368 UG/DL (228-460); Uric Acid 7.1 mg/dL (3.7-8.7)
== END | disposition home or self-care (01) ==
LOC: LABWHC1 07:10
PROVIDERS: ATTEND Nurse Practitioner Family
DX: E55.9 Vitamin D deficiency, unspecified (principal); N25.81 Secondary hyperparathyroidism of renal origin; M10.9 Gout, unspecified; N18.30 Chronic kidney disease, stage 3 unspecified; D63.1 Anemia in chronic kidney disease; R80.9 Proteinuria, unspecified
CPT/HCPCS: 36415; 80048; 81003; 82040; 82306; 82570; 82728; 83540; 83550; 83735; 83970; 84100; 84156; 84550; 85025

== ENCOUNTER → 2024-03-04 | Outpatient (CLI) | payer MEDICARE | END | disposition home or self-care (01) | LOC: LABPRL 12:00 | PROVIDERS: ATTEND Orthopaedic Surgery | CPT/HCPCS: 87070 ==

== ENCOUNTER 2024-03-09 05:33 | Day surgery (SDC) | payer MEDICARE ==
--- NOTE | 2024-03-08 13:55 | P.HPOR ---
History of Present Illness H&P Date: 03/03/24 DEMOGRAPHICS: Height: 60 Weight: 189 kg/m2 BMI: 25.6 kg/m2 Occupation: Retired VAS: 10 CHIEF COMPLAINT: Preoperative evaluation for C4-7 ACDF Spine Surgery Clinical and Risk Review Andrew Fairbanks is a 73 year old male presenting for evaluation of neck and upper extremity pain, bilateral upper extremity numbness and tingling. It was my pleasure to have seen and examined Andrew. In our visit today we have had a chance to go over subjective complaints, physical examination findings and treatments including the natural course history without intervention and various interventional options. The patients imaging demonstrates the following findings: Multilevel degenerative changes from C3-7 with the worst from C4-7 with disc degeneration, spondylosis, disc height collapse as well as central and b/l foraminal stenosis that is moderate to severe due to degenerative changes and disc herniation. There are beginning stages of myelomalacia noted at these levels as well. No fractures noted. There is a C2 lesion noted that has been worked up and is likely benign OA changes with cystic formation of the C2 posterior body. There are no extension or evidence of further changes or fracture in this area. On a physical exam, Andrew demonstrates the following findings: A continued throbbing, burning pain around the posterior and lateral aspects of the neck that radiates down into the bilateral upper extremities. He notes continued numbness and tingling throughout the upper extremities. He notes decreased hand dexterity and progressive upper extremity weakness. He states his symptoms have become debilitating over the last several months. He states his symptoms worsen after all activity. He notes severe sleep disturbances related to his ongoing pain and associated symptoms. I have explained to the patient that as their condition progresses it will cause further neurological deficits and eventual paralysis. Based on the patients imaging, physical exam, and the rapid progression and disabling nature of their symptoms, at this time I recommend surgery in the form of a: C4-7 ACDF I discussed the risk and benefits of this procedure at length with Andrew Fairbanks. The patient agreed to consider pursuing the procedure above mentioned. Prior to surgery, they should follow up with her PCP (Cardio, ID, IM etc) for clearance. Questions were invited and answered, and the patient wishes to proceed as outlined below. Currently, I am recommending: C4-7 ANTERIOR CERVICAL DECOMPRESSION & FUSION Review of surgical risks and benefits as well as an educational packet on the proposed surgical procedure. Risks: All surgical procedures come with inherent risks, including those related to positioning, anesthesia, intraoperative findings, and postoperative complications. It is important to understand that surgery does not come with any guarantee of a successful outcome as complications and adverse events are always possible. The patient was given a handout in the office today discussing the surgical procedure and risks associated with the intervention, both of which were discussed with the patient. These risks include but are not limited to the following: Experiencing same, different or even worse symptoms in back, neck, arms, or legs compared to before surgery. Requiring further surgery or other forms of treatment presently or at some time in the future at same or other levels of the intended spine surgery. On an extreme but fortunately relatively rare basis severe complications such as blindness, stroke, heart attack, temporary and/or permanent nerve injury, paralysis, coma, or may occur, sometimes without known explanation. Surgical complications may include but are not limited to risk of infection, fluid accumulation in the surgical dissection site, including a seroma or hematoma, that requires additional surgery, wound drainage, bleeding, new numbness or weakness, vision changes/loss, spinal fluid leakage, non-healing and/or infected incision, headaches, difficulty or inability to swallow, hoarseness, hemopneumothorax, pneumothorax, impotence, retrograde ejaculation, vaginal dryness; injury to nerves, spinal cord, blood vessels, lymphatics or other vital organs (i.e., bowel injury, injury to the great vessels); heterotop ic bone formation; complications related to the hardware such as screws, rods, cages including misplaced hardware, device failure, instrumentation at the wrong spine level, hardware fracture/breakage, or hardware loosening; vertebral failure of the spinal column above or below the newly placed hardware; retained surgical instrumentations or devices and the need for further surgery. Medical risks of the planned spine surgery include but are not limited to generalized Infections to the whole body or local areas outside of the surgical site (sepsis), heart attack, bleeding, anaphylaxis, meningitis, seizure, epilepsy, hearing loss, burn cali, laceration of the head or other areas of the body, bruising, hypersensitivity of the skin, bladder over distension; allergic reaction; shoulder injury related to positioning; fat, blood and air clots to other areas of the body like heart, lungs, brain; failure of internal organs such as lungs, kidneys, liver and excessive bleeding. If blood transfusions are necessary, note that transfusions may cause intolerance reactions such as anaphylaxis or other complex reactions. Despite best efforts, the results of spine surgery might not heal in terms of bone, soft tissues such as skin, fascia, ligaments, and joints. Additionally, in order to achieve best possible results, spine surgery may be carried out beyond the initially planned levels and involve decompression, fusion including insertion of hardware at levels other than the original intended area of surgical interest change some portions of the procedure in order to ensure the best possible outcomes. With spine surgery and spinal fusion, there are different off label uses of instrumentation (devices, implants and hardware) as well as biological substances (bone morphogenic proteins, demineralized bone matrix) as well as using extra bone from allograft sources (i.e. cadaver bone) or autograft (iliac crest bone, ribs, or the spine itself). The patient has been given information about these practices and their inherent risks and benefits. The patient has had a chance to review all the listed information, has been given print outs detailing this information, and has had all his/her questions answered to their satisfaction. It was my pleasure to have seen and examined Andrew. In our visit today we have had a chance to go over my understanding of our patient's current condition, the natural course history without intervention and various interventional options. Questions were invited and answered, and the patient wishes to proceed as outlined above. I have seen and examined the patient for 25 minutes and we have spent more than 50% of the time in repeat and detailed counseling about the patient's condition, its natural course history without and as much as can be pr edicted with surgery and re-review of various surgical treatment options. In conclusion, Andrew requested we proceed with the above suggested surgery and are willing to accept risks and limitations of the suggested surgery as to the nature of the disease process and our best attempts at treatment for the condition. IMPRESSION: It was my pleasure to have seen and examined Andrew Fairbanks. I reviewed the patient's clinical syndrome, physical findings, and imaging studies during the appointment today. It is my impression that the patient has a diagnosis of. 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 Questions were invited and answered, and the patient wishes to proceed as outlined above. I will be sure to keep you updated after the patient returns here for further follow-up. Thank you again for your referral. Please do not hesitate to contact me if you have any further questions. Signed and authenticated by: Mar 03, 2024 12:00?PM EDT DO Margarita Tineo [facility] [address], [address] [address] This document is confidential, intended only for the named recipient(s) and may contain information that is privileged or exempt from disclosure under applicable law. If you are not the intended recipient(s), you are notified that the dissemination, distribution or copying of this information is strictly prohibited. If you received this message in error, please notify the sender then delete this message. Past Medical History Past Medical History: GERD/Reflux, Hypertension, Renal Disease History of Any Multi-Drug Resistant Organisms: None Reported Past Surgical History: Hernia Repair, Joint Replacement, Orthopedic Surgery Additional Past Surgical History / Comment(s): right testical removed, hiatle hernia repair Past Psychological History: No Psychological Hx Reported Smoking Status: Never smoker Past Alcohol Use History: None Reported Past Drug Use History: None Reported Medications and Allergies Home Medications Medication Instructions Recorded Confirmed Type Insulin Glargine [Lantus Vial] 30 unit SQ HS 08/31/18 09/02/18 History Pantoprazole [Protonix] 40 mg PO DAILY 08/31/18 09/02/18 History Rosuvastatin [Crestor] 5 mg PO DAILY 08/31/18 09/02/18 History carvediloL [Coreg] 3.125 mg PO BID 08/31/18 09/02/18 History lisinopriL [Prinivil] 5 mg PO DAILY 08/31/18 09/02/18 History HYDROcodone/APAP 7.5-325MG [[place] 1 tab PO Q6HR PRN 3 Days #12 tab 04/25/23 Rx 7.5-325] Allergies Allergy/AdvReac Type Severity Reaction Status Date / Time aspirin Allergy sneezing & Verified 04/24/23 20:35 runny nose. Physical Examination Osteopathic Statement: *. No significant issues noted on an osteopathic structural exam other than those noted in the History and Physical/Consult.
[~2024-03-09 05:33] MED LIST changes: +ACETAMINOPHEN TAB 500 MG TAB PO PRN; -ALPRAZolam 0.25 MG TAB PO PRN; -ALPRAZolam 0.5 MG TAB PO PRN; -ASPIRIN 325 MG TAB PO ONE; -ASPIRIN 325 MG TAB PO STA; -ATORVASTATIN 10 MG TAB PO SCH; -ATORVASTATIN 80 MG TAB PO STA; -CARVEDILOL 3.125 MG TAB PO SCH; -HEPARIN SODIUM 1,000 UN/ML (10ML VL) IV ONE; -HEPARIN SODIUM 1,000 UN/ML (10ML VL) ONE; -IOPAMIDOL-370 125ML BTL INJ ONE; -LIDOCAINE 1% INJ 10MG/ML (20 ML MDV) ONE; -LIDOCAINE 1% INJ 10MG/ML (20 ML MDV) SQ ONE; -LISINOPRIL 5 MG TAB PO SCH; -NITROGLYCERIN SL TABS 0.4 MG TAB SUBLINGUAL PRN; -NON-FORMULARY DRUG (Insulin Glargine 30 UNIT) SQ SCH; +ONDANSETRON 4 MG/2 ML VIAL IVP PRN; -PANTOPRAZOLE 40 MG TABLET PO SCH; -RX INFO: IV CONTRAST WAS GIVEN 1 EACH MISC MISCELLANE PRN; -SODIUM CHLORIDE 0.9% 1,000 ML IV ONE; -SODIUM CHLORIDE 0.9% 1,000 ML IV SCH; -SODIUM CHLORIDE 0.9% 1,000 ML in EMPTY BAG 1 BAG IV ONE; +TRANEXAMIC 1,000 MG/100ML-NACL 1,000 MG in SALINE 1 100ML.BAG IVPB PRN; -VERAPAMIL 2.5 MG/ML 2 ML AMP ONE; -VERAPAMIL SYRINGE (5 MG/10 ML) INTRAARTER ONE; -fentaNYL (PF) 50 MCG/ML 2 ML AMP IV ONE; -fentaNYL (PF) 50 MCG/ML 2 ML AMP ONE
[2024-03-09] MEDS ORDERED: LIDOCAINE 1% (10MG/ML) FOR IV START INTRADERMA PRN (06:09)
[2024-03-09] MEDS: SODIUM CHLORIDE 0.9% 1,000 ML IV SCH (06:30)
[2024-03-09 06:32] LABS: Glucose,Whole Blood 161 mg/dL (70-110)
[2024-03-09] MEDS: IV FLUID CONTINUATION 1,000 ML IV ONE ×2 (06:35)
[2024-03-09] MEDS: LACTATED RINGERS 1,000 ML IV SCH (06:48)
[2024-03-09] MEDS: ONDANSETRON 4 MG/2 ML VIAL IVP ONE (06:48)
[2024-03-09] MEDS: GABAPENTIN 300 MG CAP PO PRN (06:48)
[2024-03-09] MEDS: MIDAZOLAM 2 MG/2 ML VIAL IV PRN (07:11)
--- NOTE | 2024-03-09 07:15 | P.PN ---
Progress Note - Text Progress Note Date: 03/09/24 H&P UPDATE: Pt s/e in PREOP. Discussed risks and benefits again of surgery as well as options and surgical plan. He is on-board. He states he is ready for surgery. H&P reivewed. No significant changes.
[2024-03-09 07:22] LABS: HCT 45.5 % (39.0-53.0); HGB 15.3 gm/dL (13.0-17.5); MCH 31.4 pg (25.0-35.0); MCHC 33.7 g/dL (31.0-37.0); MCV 93.1 fL (80.0-100.0); Mean Platelet Volume 8.9; Platelet Count 164 k/uL (150-450); RBC 4.88 m/uL (4.30-5.90); RDW 13.2 % (11.5-15.5); WBC 9.5 k/uL (3.8-10.6)
[2024-03-09] MEDS ORDERED: ROCURONIUM 10 MG/ML (5 ML VIAL) IV ONE (07:30)
[2024-03-09] MEDS ORDERED: SUCCINYLCHOLINE CHLORIDE 200 MG/10 ML VIAL IV ONE (07:30)
[2024-03-09] MEDS ORDERED: KETAMINE HCL IN 0.9 % NACL 50 MG/5 ML SYRINGE ONE (07:30)
[2024-03-09] MEDS ORDERED: TRANEXAMIC 1,000 MG/100ML-NACL PREMIX BAG ONE (07:30)
[2024-03-09] MEDS ORDERED: NEOSTIGMINE 1 MG/ML 10 ML VIAL ONE (07:30)
[2024-03-09] MEDS ORDERED: LIDOCAINE 1% INJ 10MG/ML (20 ML MDV) ONE (07:30)
[2024-03-09] MEDS ORDERED: PROPOFOL 10 MG/ML 20 ML VIAL IV ONE (07:30)
[2024-03-09] MEDS ORDERED: fentaNYL (PF) 50 MCG/ML 2 ML AMP ONE (07:30)
[2024-03-09] MEDS ORDERED: GLYCOPYRROLATE 0.2 MG/ML 2 ML VIAL ONE (07:30)
[2024-03-09 07:45] LABS: Chloride 106 mmol/L (98-107)
[2024-03-09 07:47] LABS: African American GFR (CKD) 47 (>60 ml/min/1.73 sqM); Anion Gap 9 mmol/L; Blood Urea Nitrogen 20 mg/dL (9-20); Calcium 9.3 mg/dL (8.4-10.2); Carbon Dioxide 22 mmol/L (22-30); Glucose 167 mg/dL (74-99); Non-African American GFR(CKD) 41 (>60 ml/min/1.73 sqM); Potassium 3.8 mmol/L (3.5-5.1); Sodium 137 mmol/L (137-145)
[2024-03-09 07:53] LABS: Partial Thromboplastin Time 23.6 sec (22.0-30.0); Prothrombin Time 10.8 sec (10.0-12.5)
[2024-03-09] MEDS: THROMBIN (BOVINE) 5,000 UNIT VIAL TOPICAL ONE (10:17)
--- NOTE | 2024-03-09 10:21 | P.OP ---
Date of Procedure: 03/09/24 Preoperative Diagnosis: Current Active Problems Cervical disc disease (Acute) Cervical radiculopathy (Acute) Cervical spondylosis with myelopathy and radiculopathy (Acute) Cervical stenosis of spine (Acute) Neck pain (Acute) Postoperative Diagnosis: Current Active Problems Cervical disc disease (Acute) Cervical radiculopathy (Acute) Cervical spondylosis with myelopathy and radiculopathy (Acute) Cervical stenosis of spine (Acute) Neck pain (Acute) Procedure(s) Performed: C4-5 ANTERIOR CERVICAL ARTHRODESIS C5-6 ANTERIOR CERVICAL ARTHRODESIS C6-7 ANTERIOR CERVICAL ARTHRODESIS C4-7 ANTERIOR CERVICAL INSTRUMENTATION C4-5, C5-6, C6-7 INSERTION OF BIOMECHANICAL DEVICE, CAGE X3 USE OF IONM USE OF IO MICROSCOPE Implants: JETT CASCADIA 10MM, 8MM, 8MM CAGE JETT OZARK PLATE, 14/16MM SCREWS BIO4 DBM AUTOGRAFT Anesthesia: GETA Surgeon: Vineet Smith Supervisor [employer] #1: Charlie Ibarra (WAS PRESENT AND ASSISTED WITH ALL ASPECTS OF THE CASE FROM POSITION TO DRESSING PLACEMENT) Estimated Blood Loss (ml): 20 IV fluids (ml): 1,500 Urine output (ml): 250 Pathology: none sent Condition: stable Disposition: PACU Indications for Procedure: Andrew Fairbanks is a 73 year old male presenting for evaluation of neck and upper extremity pain, bilateral upper extremity numbness and tingling. It was my pleasure to have seen and examined Andrew. In our visit today we have had a chance to go over subjective complaints, physical examination findings and treatments including the natural course history without intervention and various interventional options. The patients imaging demonstrates the following findings: Multilevel degenerative changes from C3-7 with the worst from C4-7 with disc degeneration, spondylosis, disc height collapse as well as central and b/l foraminal stenosis that is moderate to severe due to degenerative changes and disc herniation. There are beginning stages of myelomalacia noted at these levels as well. No fractures noted. There is a C2 lesion noted that has been worked up and is likely benign OA changes with cystic formation of the C2 posterior body. There are no extension or evidence of further changes or fracture in this area. On a physical exam, Andrew demonstrates the following findings: A continued throbbing, burning pain around the posterior and lateral aspects of the neck that radiates down into the bilateral upper extremities. He notes continued numbness and tingling throughout the upper extremities. He notes decreased hand dexterity and progressive upper extremity weakness. He states his symptoms have become debilitating over the last several months. He states his symptoms worsen after all activity. He notes severe sleep disturbances related to his ongoing pain and associated symptoms. I have explained to the patient that as their condition progresses it will cause further neurological deficits and eventual paralysis. Based on the patients imaging, physical exam, and the rapid progression and disabling nature of their symptoms, at this time I recommend surgery in the form of a: C4-7 ACDF I discussed the risk and benefits of this procedure at length with Andrew Fairbanks. The patient agreed to consider pursuing the procedure above mentioned. Prior to surgery, they should follow up with her PCP (Cardio, ID, IM etc) for clearance. Questions were invited and answered, and the patient wishes to proceed as outlined below. Currently, I am recommending: C4-7 ANTERIOR CERVICAL DECOMPRESSION & FUSION Description of Procedure: C4-7 ACDF plate screws The patient was seen and examined in the preoperative area. All preoperative protocols were followed. Informed consent was obtained, risks and benefits of the procedure were discussed at length. Risks including bleeding infection damage to the surrounding tissue and risk of reoperation were discussed with the patient. Risk of anesthesia up to and including was discussed with the patient. These are outlined in the risk review. They were willing to accept these risks and all the risks of surgery. The patient was given a weight-based dose of antibiotics in the form of 2 g Ancef. The patient was seen and evaluated by the anesthesia team who deemed them fit for surgery. The site was marked, the patient was willing to proceed with the procedure. The patient was transferred to the operative suite by the Department of anesthesia. They were then drifted off to sleep by the department anesthesia and GETA was performed. The patient tolerated this well. Ricardo catheter was placed by nursing staff, a-traumatically. Once confirmation of lines and ventilation the patient was transferred to a Supine Clint table very carefully. All bony prominences including wrists, elbows, axilla, chest, hips, and thighs, and feet were padded very well. Special attention was paid to the genitalia, and these were padded accordingly. SCDs were placed on bilateral lower extremities and were connected. Arms were well padded and placed at their side thumbs up. Once in position, again we confirmed good ventilation capabilities and that lines were running appropriately. The patients Cervical spine was then exposed. 1010s were placed outlining the incision site. Standard alcohol was used to clean the incision site and allowed to dry. C-arm was used to bio-esme the patient and confirm level for incision which was marked with a skin marker. Operative briefing was performed with all teams and everyone in agreement to proceed. The patient was then prepped and draped in a normal sterile fashion. Timeout was then performed, and all parties agreed with the procedure to be performed. Transverse skin incision was then made on the right side of the patient's neck 3 cm and dissection taken down to the platysma which was split transversely. Sub platysma flap was made, and interval identified between SCM and medial structures. Omohyoid was visualized and protected. Blunt dissection taken down to the anterior cervical fascia which was identified. Blunt probe was then placed and lateral image taken which confirmed levels for operation. These levels were then marked with a bovi. Subperiosteal dissection of the longissimus muscles were then done over these levels identifying uncovertebral joints bilaterally. Retractor was then placed deep to these muscles and held in place with a bed arm. Microscope was then brought in for visualization. [place] pins were placed into C6 and C7 and gentle distraction taken out over the levels. Carlo rongeur used to remove disc material. Operating microscope brought in for visualization. Complete discectomy performed at this level with curette, rongure and pituitary. High speed sabrina used to remove osteophytes anteriorly and posteriorly until PLL was identified. 6-0 up curette then used to identify the canal and ressect the PLL. 2-0 and 3-0 Kerrison used then to remove PLL and disc herniation and performed b/l foraminotomies. Once good decompression was accomplished, meticulous hemostasis was performed. Sizers were then placed under lateral fluoroscopy until the desired height and lordosis. Cage was then selected, packed with autograft and allograft and placed under lateral imaging. Once in good position it was tested and stable. Motors run before and after cage placement were stable. The wound was irrigated, and autograft placed lateral to the cage anteriorly for fusion. [place] pin was then removed from C7 and placed into C5 and bone wax placed in their void. Gentle distraction taken out over C5-6 now. Complete discectomy done at C5-6 as described including decompression, b/l foraminotomies and PLL resection. Burring of endplates was minimal, osteophytes removed as described. Spacers were then sized and placed under lateral imaging. Cage selected, packed with graft and placed under lateral images. Once in position, meticulous hemostasis performed, and motors remained stable before and after cage placement. AP image confirmed good placement of cages. Wound was irrigated. [place] pin was then removed from C6 and placed into C4. At C4-5 now, gentle distraction is taken out over the levels. Carlo rongeur used to remove disc material.. Complete discectomy performed at this level with curette, rongure and pituitary. High speed sabrina used to remove osteophytes anteriorly and posteriorly until PLL was identified. 6-0 up curette then used to identify the canal and ressect the PLL. 2-0 and 3-0 Kerrison used then to remove PLL and disc herniation and performed b/l foraminotomies. Once good decompression was accomplished, meticulous hemostasis was performed. Sizers were then placed under lateral fluoroscopy until the desired height and lordosis. Cage was then selected, packed with autograft and allograft and placed under lateral imaging. Once in good position it was tested and stable. Motors run before and after cage placement were stable. The wound was irrigated, and autograft placed lateral to the cage anteriorly for fusion. A separate, non-integrated plate was then selected and sized under lateral image. The plate was then placed with screws. Fixed screws drilled into C7 b/l and screws placed. Then into C6 C5 and C4 bilaterally. All locking mechanisms were set, and all screws had good purchase. Final AP and lateral images taken confirmed good placement of hardware and good reduction and rastafarian of height. The wound was then irrigated copiously with NSS. Surgicel placed deep in the wound. A deep drain placed out a separate incision and sewed into place. Layered closure then performed with 3-0 Vicryl in the platysma and subQ tissue. 4-0 stratafix was then placed in the subcuticular skin. The wound was then cleaned, dried and skin glue placed. Once glue dried telfa, 4x4, and tegaderms were placed for dressing. Wound edges approximated well. The patient was then transferred back to their hospital bed a-traumatically. The drain continued to hold suction. They were placed in a soft collar. They were then awakened by the department of anesthesia having tolerated the procedure well without complications.
--- NOTE | 2024-03-09 10:30 | FL ---
EXAMINATION TYPE: FL guidance operating room, XR cervical spine limited Intraoperative/procedural flu oroscopic services were provided. Total fluoroscopy time is 24 seconds with a total of 3 submitted im ages to PACS. Please see the operative/procedural note for further details. DAP: 0.7733 Gycm2
[2024-03-09 10:57] LABS: Glucose,Whole Blood 138 mg/dL (70-110)
[2024-03-09] MEDS: HYDROmorphone 0.5 MG/0.5 ML SYRINGE IVP PRN (10:59)
[2024-03-09] MEDS ORDERED: ONDANSETRON 4 MG/2 ML VIAL IVP PRN (11:12)
[2024-03-09] MEDS ORDERED: HYDROmorphone 0.5 MG/0.5 ML SYRINGE IVP PRN (11:12)
[2024-03-09] MEDS ORDERED: HYDROmorphone 1 MG/ML 1 ML SYRINGE IVP PRN (11:12)
[2024-03-09] MEDS ORDERED: MAGNESIUM HYDROXIDE 2,400 MG/30 ML CUP PO PRN (11:12)
[2024-03-09] MEDS ORDERED: MAG HYDROX/AL HYDROX/SIMETH 30 ML CUP PO PRN (11:12)
[2024-03-09] MEDS: fentaNYL (PF) 50 MCG/ML 2 ML AMP IVP PRN (15:49)
[2024-03-09 17:01] LABS: Glucose,Whole Blood 153 mg/dL (70-110)
[2024-03-09] MEDS: DEXAMETHASONE SOD PHOSPHATE 4 MG/ML 1 ML VIAL IV ONE (17:49)
[2024-03-09] MEDS: ACETAMINOPHEN TAB 325 MG TAB PO SCH (17:49)
[2024-03-09] MEDS: KETOROLAC 15 MG/ML 1 ML VIAL IVP SCH (17:50)
[2024-03-09] MEDS ORDERED: DEXTROSE 50% SYRINGE 50 ML IVP PRN ×2 (17:51)
--- NOTE | 2024-03-09 17:56 | P.CONS ---
History of Present Illness - Reason for Consult Consult date: 03/09/24 - History of Present Illness 73 year old M with PMH of DM, HTN, HLD presents to [facility] for elective surgery. He underwent C4-[address] Smith[address] [facility] consulted for medical management of this patient. Patient reports well controlled pain in his neck. No other complaints. General: non toxic, no distress, appears at stated age Derm: warm, dry Head: atraumatic, normocephalic, symmetric, C-collar intact Eyes: EOMI, no lid lag, anicteric sclera Mouth: no lip lesion, mucus membranes moist Cardiovascular: S1S2 reg, no murmur Lungs: CTA bilateral, no rhonchi, no rales , no accessory muscle use Ext: no gross muscle atrophy, no edema, no contractures Neuro: no focal neuro deficits Psych: Alert, oriented, appropriate affect +Ricardo Based on my assessment of this patient, this patient meets a moderate complexity level of care. Hypertension: Restart Coreg 6.25 mg PO BID and Lisinopil 5 mg PO QD. Diabetes mellitus: ISS. Accuchecks ACHS. Hypoglycemic precautions. Neuropathy: Gabapentin 300 mg PO BID. GERD: Protonix 40 mg PO QD. Status post C4-7 ACDF managed by Orthopedic surgery CODE STATUS: FULL CODE DVT Prophylaxis: Per Ortho Sx. GI Prophylaxis: Protonix PO Designated medical POA if patient is not able to make medical decisions for themselves: Past Medical History Past Medical History: GERD/Reflux, Hypertension, Renal Disease History of Any Multi-Drug Resistant Organisms: None Reported Past Surgical History: Hernia Repair, Joint Replacement, Orthopedic Surgery Additional Past Surgical History / Comment(s): right testical removed, hiatle hernia repair Past Psychological History: No Psychological Hx Reported Smoking Status: Never smoker Past Alcohol Use History: None Reported Past Drug Use History: None Reported Medications and Allergies Home Medications Medication Instructions Recorded Confirmed Type Pantoprazole [Protonix] 40 mg PO DAILY 08/31/18 03/09/24 History Rosuvastatin [Crestor] 5 mg PO DAILY 08/31/18 03/09/24 History carvediloL [Coreg] 6.25 mg PO BID 08/31/18 03/09/24 History lisinopriL [Prinivil] 5 mg PO DAILY 08/31/18 03/09/24 History Empagliflozin [Jardiance] 10 mg PO DAILY 03/08/24 03/09/24 History Ferrous Sulfate [Iron] 325 mg PO BID 03/08/24 03/09/24 History Ferrous Sulfate [Iron] 325 mg PO HS 03/08/24 03/09/24 History Gabapentin 300 mg PO BID 03/08/24 03/09/24 History metFORMIN HCL [Glucophage] 500 mg PO BID 03/08/24 03/09/24 History Allergies Allergy/AdvReac Type Severity Reaction Status Date / Time aspirin Allergy sneezing & Verified 03/09/24 06:10 runny nose. NSAIDS (Non-Steroidal AdvReac Unknown Verified 03/09/24 06:10 Anti-Inflamma Physical Exam Vitals: Vital Signs Temp Pulse Pulse Pulse Resp BP BP 03/09/24 16:43 97.4 F L 60 17 158/81 03/09/24 16:00 62 16 137/88 03/09/24 15:00 61 16 146/89 03/09/24 14:00 53 L 16 148/82 03/09/24 13:00 67 16 151/77 03/09/24 12:30 56 L 16 148/76 03/09/24 12:00 60 16 146/82 03/09/24 11:30 58 L 14 121/80 03/09/24 11:15 58 L 14 121/72 03/09/24 11:00 68 14 131/76 03/09/24 10:45 68 14 125/86 03/09/24 10:40 97.3 F L 68 14 122/78 03/09/24 07:16 65 15 136/88 03/09/24 06:07 97.3 F L 75 16 139/91 Pulse Ox 03/09/24 16:43 99 03/09/24 16:00 97 03/09/24 15:00 96 03/09/24 14:00 98 03/09/24 13:00 98 03/09/24 12:30 97 03/09/24 12:00 97 03/09/24 11:30 96 03/09/24 11:15 96 03/09/24 11:00 94 L 03/09/24 10:45 96 03/09/24 10:40 96 03/09/24 07:16 95 03/09/24 06:07 96 Intake and Output 03/09/24 03/09/24 03/09/24 06:59 14:59 22:59 Intake Total 200 1350 Output Total 320 Balance 200 1030 Intake: IV 200 1350 Output: Urine 300 Estimated Blood Loss 20 Other: Weight 85 kg 85 kg Results CBC & Chem 7: 03/09/24 06:17 03/09/24 06:17 Labs: Abnormal Lab Results - Last 24 Hours (Table) 03/09/24 03/09/24 03/09/24 Range/Units 06:15 06:17 10:55 Creatinine 1.63 H (0.66-1.25) mg/dL Glucose 167 H (74-99) mg/dL POC Glucose (mg/dL) 161 H 138 H (70-110) mg/dL 03/09/24 Range/Units 16:59 Creatinine (0.66-1.25) mg/dL Glucose (74-99) mg/dL POC Glucose (mg/dL) 153 H (70-110) mg/dL
[2024-03-09] MEDS: GABAPENTIN 300 MG CAP PO SCH ×2 (18:04→20:43)
[2024-03-09 20:20] LABS: Glucose,Whole Blood 160 mg/dL (70-110)
[2024-03-09] MEDS: carvediloL 6.25 MG TAB PO SCH (20:31)
[2024-03-09] MEDS: FERROUS SULFATE 325 MG TAB PO SCH ×2 (20:33→20:43)
[2024-03-09] MEDS: HYDROcodone/APAP 7.5-325MG 1 EACH TAB PO PRN (21:19)
[2024-03-09] MEDS: BENZOCAINE/MENTHOL LOZENG 1 EACH LOZENGE MUCOUS MEM PRN (21:20)
[2024-03-09] MEDS: INSULIN ASPART (NovoLOG) 100 UNIT/ML VIAL SQ SCH (21:22)
[2024-03-10 06:16] LABS: Glucose,Whole Blood 102 mg/dL (70-110)
[2024-03-10] MEDS: SENNOSIDES-DOCUSATE SODIUM 1 EACH TAB PO SCH (07:54)
[2024-03-10] MEDS: ATORVASTATIN 10 MG TAB PO SCH (07:54)
[2024-03-10] MEDS: lisinopriL 5 MG TAB PO SCH (07:54)
[2024-03-10] MEDS: PANTOPRAZOLE 40 MG TABLET PO SCH (07:54)
--- NOTE | 2024-03-10 09:40 | P.PN ---
Subjective Progress Note Date: 03/10/24 Principal diagnosis: C4-7 spondylosis with stenosis Bilateral upper extremity weakness Cervical myelopathy Cervicalgia C2 lesion Patient seen and examined this morning. Patient is sitting up in chair at bedside. He states that he did work with physical therapy this morning and ambulated in hallway and tolerated activity very well. Patient does report that his pain is managed on current regimen. Surgical incision to the anterior cervical spine, edges are well-approximated with glue intact. REBEKA drain has been removed. New dressing has been applied. Hard cervical collar is intact. Patient does notice improvement in his cervical pain and bilateral upper extre mity radiculopathy since the procedure. Patient states that he feels comfortable going home. Discharge instructions have been discussed. Objective - Vital Signs Vital signs: Vital Signs Temp 98.4 F 03/10/24 07:27 Pulse 65 03/10/24 07:27 Resp 16 03/10/24 07:27 BP 131/76 03/10/24 07:27 Pulse Ox 97 03/10/24 07:27 FiO2 Intake & Output 03/09/24 03/10/24 03/10/24 18:59 06:59 18:59 Intake Total 1350 Output Total 920 508 Balance 430 -508 Weight 85 kg Intake: IV 1350 Output: Drainage 8 Neck 8 Urine 900 500 Estimated Blood Loss 20 Other: Voiding Method Indwelling Catheter - Exam Physical Examination General: The patient is awake and alert, in no acute distress Skin: Skin is warm and dry with no obvious rashes or lesions. Eye: Pupils are equal, round and reactive to light, extra-ocular movements are intact; there is normal conjunctiva bilaterally. Neck: The neck is supple, there is no tenderness and ROM intact. Cardiovascular: There is a regular rate and rhythm. No murmur, rub or gallop is appreciated. Respiratory: Respirations are non-labored, breath sounds are equal. Gastrointestinal: Soft, non-distended, non-tender abdomen. Back: There is no tenderness to palpation in the midline, paralumbar, parathoracic or buttocks region. There is no obvious deformity . Musculoskeletal: ROM limited secondary to pain and stiffness from surgical procedure. Right: Shoulder abduction 5/5, elbow flexors 4/5, wrist dorsiflexors 4/5. finger abductor 4/5, epic application coordinator 5/5, hip flexor 5/5, knee flexor 5/5, ankle dorsiflexor 5/5, ankle plantarflexion 5/5 and extensor hallucis 5/5. Left: Shoulder abduction 5/5, elbow flexors 4/5, wrist dorsiflexors 4/5. finger abductor 4/5, epic application coordinator 5/5, hip flexor 4-/5, knee flexor 4/5, ankle dorsiflexor 5/5, ankle plantarflexion 5/5 and extensor hallucis 5/5. Neurological: CN 2-12 intact. There are no obvious motor or sensory deficits. Movement and coordination equal and intact. Sensory exam to light touch intact C5-T1 and intact from L2-S1. Reflexes 2/4 in bilateral upper and lower ex tremities. Negative Hoffmans, babinski, and clonus signs. Psychiatric: Cooperative, appropriate mood & affect, normal judgment. - Labs CBC & Chem 7: 03/09/24 06:17 03/09/24 06:17 Labs: Abnormal Lab Results - Last 24 Hours (Table) 03/09/24 03/09/24 03/09/24 Range/Units 10:55 16:59 20:18 POC Glucose (mg/dL) 138 H 153 H 160 H (70-110) mg/dL Assessment and Plan Assessment: Postop day 1: C4-C7 ACDF Plan: -Appreciate product marketing consultant and team management. -Activity: Ambulate QID, OOB all meals, up and about, limit lifting bending twisting to less than 5 lbs. Use walker or cane if needed for stability. -Daily PT/OT, increase ambulation strength and balance. -Hard cervical collar at all times, patient may remove for showers. -Pain control: Adequate at this time -Meds: reviewed -GI ppx: senna, Miralax -DVT PPX: TEDS -Hygiene: Shower today. Maintain dressing clean and dry. -Encourage IS 10x/hr -Dispo: Discharge home later today. *I reviewed and discussed this case with my attending Dr. Smith, whom has reviewed this chart and films and is in agreement with assessment and plan of care as outlined above. I have personally seen and examined the patient, performed the documentation and the assessment and plan as written. Number of minutes spent on the visit: 20m.
--- NOTE | 2024-03-10 09:42 | P.PN ---
Subjective Progress Note Date: 03/10/24 73 year old M with PMH of DM, HTN, HLD presents to [facility] for elective surgery. He underwent C4-[address] Smith on 03/09. [facility] Physicians consulted for medical management of this patient. 03/10 Patient was seen and examined. Pain well controlled. No complaints. Urinating freely. No bowel movement yet. Not passing gas. BP 118/71, HR 64. CBC and BMP done 03/09 showed Cr 1.63 and glu 167. General: non toxic, no distress, appears at stated age Derm: warm, dry Head: atraumatic, normocephalic, symmetric, C-collar intact Eyes: EOMI, no lid lag, anicteric sclera Mouth: no lip lesion, mucus membranes moist Cardiovascular: S1S2 reg, no murmur Lungs: CTA bilateral, no rhonchi, no rales , no accessory muscle use Ext: no gross muscle atrophy, no edema, no contractures Neuro: no focal neuro deficits Psych: Alert, oriented, appropriate affect Based on my assessment of this patient, this patient meets a moderate complexity level of care. Hypertension: Coreg 6.25 mg PO BID and Lisinopil 5 mg PO QD. Diabetes mellitus: ISS. Accuchecks ACHS. Hypoglycemic precautions. Neuropathy: Gabapentin 300 mg PO BID. GERD: Protonix 40 mg PO QD. Status post C4-7 ACDF managed by Orthopedic surgery Patient is medically stable for discharge. Med rec completed. CODE STATUS: FULL CODE DVT Prophylaxis: Per Ortho Sx. GI Prophylaxis: Protonix PO Designated medical POA if patient is not able to make medical decisions for themselves: Objective - Vital Signs Vital signs: Vital Signs Temp 98.0 F 03/10/24 01:14 Pulse 64 03/10/24 01:14 Resp 17 03/10/24 01:14 BP 118/71 03/10/24 01:14 Pulse Ox 97 03/10/24 01:14 FiO2 Intake & Output 03/09/24 03/10/24 03/10/24 18:59 06:59 18:59 Intake Total 1350 Output Total 920 508 Balance 430 -508 Weight 85 kg Intake: IV 1350 Output: Drainage 8 Neck 8 Urine 900 500 Estimated Blood Loss 20 Other: Voiding Method Indwelling Catheter - Labs CBC & Chem 7: 03/09/24 06:17 03/09/24 06:17 Labs: Abnormal Lab Results - Last 24 Hours (Table) 03/09/24 03/09/24 03/09/24 Range/Units 06:17 10:55 16:59 Creatinine 1.63 H (0.66-1.25) mg/dL Glucose 167 H (74-99) mg/dL POC Glucose (mg/dL) 138 H 153 H (70-110) mg/dL 03/09/24 Range/Units 20:18 Creatinine (0.66-1.25) mg/dL Glucose (74-99) mg/dL POC Glucose (mg/dL) 160 H (70-110) mg/dL
--- NOTE | 2024-03-10 09:55 | P.DS ---
Providers Date of admission: 03/09/24 Expected date of discharge: 03/10/24 Attending physician: Vineet Smith DO Consults: 03/09/24 11:12 Consult Physician Routine Consulting Provider: Hayley De Leon Consult Reason/Comments: medical management Do you want consulting provider notified?: Yes Primary care physician: [facility] Course: Hospital Course: The patient was evaluated preoperatively and found to have the diagnosis of cervical spondylosis with stenosis, bilateral upper extremity radiculopathy. They underwent appropriate preoperative care and were willing to undergo the intended procedure. They underwent a successful C4-C7 ACDF, were recovered appropriately and sent to the floor. While on the floor they worked with physical therapy, occupational therapy and nursing to enhance their recovery experience. Their pain was well controlled through their stay and they were started on appropriate medications, DVT ppx modalities, activity and dietary needs. Daily labs were monitored closely, and transfusions were only used when necessary. Medicine as well as other consulting services have made their input and have helped with our team approach and multidisciplinary care. PT milestones have been met and passed and they have made the recommendation of home for this patient and treating providers agree with this care path. The patient will be di scharged home with appropriate medications, instructions and follow-up information and in stable condition. Patient Condition at Discharge: Good Plan - Discharge Summary Discharge Rx Participant: No New Discharge Prescriptions: New cefaDROXiL [Duricef] 500 mg PO Q12HR #10 cap Cyclobenzaprine [Flexeril] 5 mg PO TID PRN #40 tablet PRN Reason: Muscle Spasm Gabapentin 300 mg PO TID #90 cap HYDROcodone/APAP 7.5-325MG [[place] 7.5] 1 each PO Q6HR PRN #42 tab PRN Reason: Pain Sennosides/Docusate Sodium [Senna Plus 8.6-50 mg Tablet] 1 each PO DAILY PRN #20 tab PRN Reason: Constipation Continue Pantoprazole [Protonix] 40 mg PO DAILY carvediloL [Coreg] 6.25 mg PO BID Rosuvastatin [Crestor] 5 mg PO DAILY lisinopriL [Prinivil] 5 mg PO DAILY Ferrous Sulfate [Iron] 325 mg PO BID metFORMIN HCL [Glucophage] 500 mg PO BID Ferrous Sulfate [Iron] 325 mg PO HS Gabapentin 300 mg PO BID Empagliflozin [Jardiance] 10 mg PO DAILY Discharge Medication List Pantoprazole [Protonix] 40 mg PO DAILY 08/31/18 [History] Rosuvastatin [Crestor] 5 mg PO DAILY 08/31/18 [History] carvediloL [Coreg] 6.25 mg PO BID 08/31/18 [History] lisinopriL [Prinivil] 5 mg PO DAILY 08/31/18 [History] Empagliflozin [Jardiance] 10 mg PO DAILY 03/08/24 [History] Ferrous Sulfate [Iron] 325 mg PO BID 03/08/24 [History] Ferrous Sulfate [Iron] 325 mg PO HS 03/08/24 [History] Gabapentin 300 mg PO BID 03/08/24 [History] metFORMIN HCL [Glucophage] 500 mg PO BID 03/08/24 [History] Cyclobenzaprine [Flexeril] 5 mg PO TID PRN #40 tablet 03/10/24 [Rx] Gabapentin 300 mg PO TID #90 cap 03/10/24 [Rx] HYDROcodone/APAP 7.5-325MG [[place] 7.5] 1 each PO Q6HR PRN #42 tab 03/10/24 [Rx] Sennosides/Docusate Sodium [Senna Plus 8.6-50 mg Tablet] 1 each PO DAILY PRN #20 tab 03/10/24 [Rx] cefaDROXiL [Duricef] 500 mg PO Q12HR #10 cap 03/10/24 [Rx] Follow up Appointment(s)/Referral(s): Vineet Smith DO [Doctor of Osteopathic Medicine] - 2 Weeks (Please call office to schedule appointment unless previously scheduled) Activity/Diet/Wound Care/Special Instructions: Spine Discharge and Recovery Instructions Date of Surgery: 03/09/2024 Diagnosis: Cervical spondylosis with stenosis, bilateral upper extremity radiculopathy Procedure: C4-C7 ACDF Medications: See medication list All medication refills should be obtained through your primary care doctor or your clinic spine surgeon. Please discuss prescription refills at your follow up appointment. Do not call the hospital for medication refills. Activity: Encourage ambulation with assist of walker, Up and about 6-8x daily PT/OT daily work on balance, strength and mobility Up in chair with all meals Shower daily Brace: Use brace when up and about, do not wear in bed or shower Dressing: Leave your dressing in place for a total of 3 days post operatively. Then you may remove your dressing and leave open to air. Keep the area clean and if not able to keep area clean, then cover with sterile gauze and tape. Showering: You may shower 3 days after your procedure allowing soap and water to run over incision. Do not scrub. Do not soak. Blot dry. Follow up: Please confirm a follow up appointment with your surgeon 2 weeks post operatively. Please make an appointment to follow up with your PCP in 1-2 weeks after surgery for evaluation '3 phase, 3-week plan' POST OP WEEKS 1-3 1. Lifting/carrying/pushing/pulling limited to less than 5 pounds. 2. Do not sit for longer than 15 minutes at one time. Get up and walk around. Prolonged sitting is NOT advised. If you lay down, see if you can tolerate laying down on you front (belly side) 3. Walk for periods of 15 minutes = 1 mile but no longer; do it multiple times times each day. 4. Ice your low back after activity. POST OP WEEKS 3-6 1. Lifting limited to less than 20 pounds. 2. Do not sit for longer than 30 minutes at a time. Frequently change positions. Use a sit-to stand workstation or take frequent breaks from sitting if you have returned to work. 3. Walk for 30 minutes each day. If possible, do these three or more times a day POST OP WEEKS 6+ At your 6-week appointment we will give you a physical therapy referral to focus on a core stabilization and strengthening program. You should also work on leg & buttock strengthening, hamstring & quadriceps stretching, and continue a low impact aerobic activity program such as swimming, walking, or riding a stationary bicycle. During the initial 6 weeks after your surgery, you are at the highest risk of re-injuring your spine. You should generally avoid BLT's (bending, lifting and twisting combination motions) and follow the above guidelines to reduce the chance of reinjury. You can anticipate post op appointments in our office at approximately 3 weeks and 6 weeks after your surgery. INCISION CARE: If your incision is not draining you do NOT need to cover it with a dressing. Keep your incision clean, dry and intact. In most cases, we apply skin glue, betty or sutures to the incision at the time of surgery. This will be like a crust or have the appearance of a scab and will fall off in time on its own. The stitches or betty need to be removed at 3 weeks post op appointment. You may begin to shower 3 days after surgery (this allows the glue to felix well). However, please avoid scrubbing the incision site or peeling off any of the skin glue. This will ensure optimal healing of your incision. Also, during this time avoid soaking the incision area in water - this includes swimming pools, hot tubs or baths. No ointments, lotions or oils on the incision until your surgeon allows. Leave betty, sutures or glue in place. Neurological dysfunction that comes on suddenly can also be a sign of a stroke. Below some common symptoms of a stroke are listed: B - balance difficulty such as sudden onset walking or leaning to one side - NEW E - eye problem such as sudden double vision or trouble seeing on one side - NEW F - Facial weakness or numbness on one side - NEW A - Arm or leg weakness or numbness on one side - NEW S - Slurred speech or difficulty with word finding - NEW T - Time is BRAIN! Call 911 as soon as you recognize these symptoms Diet: Consume a regular diet rich in vegetables and lean protein such as chicken or fish. You should consume in a ratio of approximately 20% fats|40% carbohydrates|40%protein. Vegetables, sweet potatoes, brown rice or quinoa are examples of good carbohydrates. Chips, white bread, cookies and sweets/sugar are examples of bad carbohydrates. Limit your bad carbs, go wild with good carbs. "Life's Simple 7" Guidelines as per [place] [employer] These will help you reclaim your life after surgery and distillation operator helper in your recovery, keeping in mind your restrictions. (1) Get Active. Physical activity can help people lose weight, control high blood pressure and cholesterol, feel emotionally better, and sleep better. (2) Control Cholesterol. Avoid a diet high in saturated fat, trans fat, & cholesterol. Limit whole milk & cream, ice cream, butter, egg yolks, processed meats (like sausage and hot dogs), and fatty meats. Choose healthy foods that are low in saturated fat, trans fat and cholesterol which include: Fruits and vegetables, fiber rich grain products (like whole grain pasta and brown rice), lean meat such as chicken, fish, nuts, seeds, and legumes. (3) Eat Better. Eat small portions. Shop at the grocery with a list and do not stray from it. Tips for a healthy diet include: Limit sodium intake to less than 1500mg daily, avoid prepackaged, processed, and fast foods, choose a diet rich in fruits, vegetables, and whole grain, high fiber foods, and limit saturated & cholesterol in your diet. (4) Manage Blood Pressure. If you have high blood pressure, you should have a cuff at home so that you can check your blood pressure regularly. Be sure you have a good cuff. An arm one is generally better than a wrist one. Bring the cuff to a doctor's appointment to validate that the measurements that your cuff are taking are accurate. Take your blood pressure twice daily when you are sitting down and relaxing. Record the numbers in a log and bring this log with you to your doctors' appointments. (5) Lose Weight if your BMI is above 25. A healthy BMI is between 19-25. To calculate Your BMI, you may use a Standard BMI Calculator on the NIH BMI website: <www.nhlbi.nih.gov/guidelines/obesity/BMI/bmicalc.htm>. Weigh oneself daily. If you are overweight, set a goal to lose weight. A pound a week loss if needed is a good target. (6) Reduce Blood Sugar. Limit foods and liquids with "added sugars." (Added sugars include sucrose, fructose, glucose, maltose, dextrose, high fructose corn syrup, corn syrup, concentrated fruit juice and honey). (7) Stop Smoking. If you smoke, quitting smoking is one of the best things that you can do for your health. Smoking increases your risk of heart attack, stroke, and peripheral vascular disease, which is a build-up of plaque in your arteries. Please discard all the cigarettes and lighters in your house. Have a plan for what you will do when you have the urge to smoke. Direct and second- hand smoke shortens your life as well as the lives of your family, friends and others around you. For your health and the health of those around you, please consider quitting! Proper Bending Body Mechanics: Maintain a wide stance with one foot slightly in front of the other. Keep your back straight. Bend utilizing the strength in your hips and knees. Do not bend at the waist. Maintain the lifted object at your waist-level close to your body. Avoid lifting weight that causes immediately pain or pain anywhere in the body afterwards. Smoking/Nicotine If there was ever one thing that you could do to increase your overall health, decrease your risk of cardiovascular problems by about 39% the second you make the choice, it is to STOP SMOKING. Your body's most instant gratification is the second you stop smoking. We have all heard the studies, read the articles but it is true, smoking is extremely bad for your overall health, and moreover it is detrimental to your bone health. Nicotine, IN ANY FORM, kills bone cells, prevents your body from healing fractures, and significantly prolongs healing after surgery. In spine surgery specifically, it increases your risk of not healing your bones to create a fusion and increases your risk of having a revision surgery due to this up to 60%. I know it is hard. I know it feels impossible. But there are ways. Take control of your life. We are here to help you through it. And when you are ready, ask us and we can direct you to help if you desire. Use the START Plan to Quit Smoking (please visit the Helpguide.org website listed below for more information): S = Set a quit date. Choose a date within the next 2 weeks, so you have enough time to prepare without losing your motivation to quit. If you mainly smoke at work, quit on the weekend, so you have a few days to adjust to the change. T = Tell family, friends, and co-workers that you plan to quit. Let your friends and family in on your plan to quit smoking and tell them you need their support and encouragement to stop. Look for a quit junito who wants to stop smoking as well. You can help each other get through the rough times. A = Anticipate and plan for the challenges you'll face while quitting. Most people who begin smoking again do so within the first 3 months. You can help yourself make it through by preparing ahead for common challenges, such as nicotine withdrawal and cigarette cravings. R = Remove cigarettes and other tobacco products from your home, car, and work. Throw away all your cigarettes (no emergency pack!), lighters, ashtrays, and matches. Wash your clothes and freshen up anything that smells like smoke. Shampoo your car, clean your drapes and carpet, and steam your furniture. T = Talk to your doctor about getting help to quit. Your doctor can prescribe medication to help with withdrawal and suggest other alternatives. If you can't see a doctor, you can get many products over the counter at your local pharmacy or grocery store, including the nicotine patch, nicotine lozenges, and nicotine gum. Resources for Quitting Smoking: <https://www.[facility].gov/documents/[facility]/Quit_Tobacco_Resources_for_patients_313480_7.pdf> Supplementation: Take recommended dosages of Vitamin D and Calcium to help fortify your bones and help them to heal. See your health maintenance packet for dosages and recommended levels. DVT/VTE prophylaxis: You will be given compression stockings from the hospital. Wear these daily for the first two weeks after surgery. You may take them off at night. You may be prescribed a medication to help thin your blood. Take this as directed. If you are not prescribed this medication, early and frequent ambulation has been shown to be the best prophylaxis to deep vein thrombosis and sequelae related to this event. Discharge Disposition: HOME SELF-CARE
[2024-03-10 11:07] LABS: Glucose,Whole Blood 198 mg/dL (70-110)
--- NOTE | 2024-03-10 11:50 | CT ---
EXAMINATION TYPE: CT cervical spine wo con DATE OF EXAM: 03/10/2024 COMPARISON: 04/24/2023 HISTORY: 73-year-old male S/P ACDF C4-C7 TECHNIQUE: Contiguous axial scanning of the cervical spine without IV contrast. Coronal and sagittal reconstructions performed. CT DLP: 552.7 mGycm Automated exposure control for dose reduction was used. FINDINGS: Surgical clips along the right side of the neck. Soft tissue edema and foci of air related to recent operation. Prominent edema along the retropharyngeal space with tissue thickening up to 1.8 cm due to the edema. Status post C4-C7 ACDF without evident complication. Hypertrophic facet arthropathy throughout. Mild degenerative disc disease below the fusion at C7-T1 w ith similar grade 1 anterolisthesis here. Moderate degenerative disc disease above the fusion at C3-C 4 with trace grade 1 anterolisthesis here. An incidental sclerotic focus within the right lateral aspect of the C3 vertebral body. Recommend cor relation with PSA values. Cystic change along the left posterior aspect of the C2 vertebral body is u nchanged. Prominent mottled debris distending the esophagus redemonstrated. Patchy interstitial infiltrates within the right upper lobe may be increased. IMPRESSION: 1. STATUS POST C4-C7 ACDF. PROMINENT POST SURGICAL RETROPHARYNGEAL EFFUSION THICKENING THE TISSUES OF THE 1.8 CM AND OTHER RECENT POSTOPERATIVE CHANGES ALONG THE ANTERIOR ASPECT OF THE RIGHT NECK. OTHER DOAN, NO EVIDENT HARDWARE COMPLICATION. 2. TRACE DEGENERATIVE GRADE 1 ANTEROLISTHESIS C3-C4 AND SIMILAR GRADE 1 ANTEROLISTHESIS C7-T1, ABOVE AND BELOW THE FUSION. 3. PROMINENT MOTTLED DEBRIS DISTENDING THE VISUALIZED THORACIC ESOPHAGUS REDEMONSTRATED. CORRELATE TO EXCLUDE ANY DISTAL ESOPHAGEAL STRICTURE, SIGNIFICANT GASTROESOPHAGEAL REFLUX, DYSMOTILITY, OR OBSTRU CTING NEOPLASM. 4. INTERSTITIAL INFILTRATES WITHIN THE RIGHT UPPER LOBE APPEAR TO BE INCREASED. CORRELATE FOR ANY ACU TE INFECTIOUS/INFLAMMATORY RESPIRATORY SYMPTOMS. 5. Sclerotic focus within the right lateral aspect of the C3 vertebral body redemonstrated. Nonspecif ic, possible bone island. Correlate with PSA values.
[2024-03-10] MEDS: TAMSULOSIN 0.4 MG CAP.ER.24H PO STA (15:31)
[2024-03-10 16:23] LABS: Glucose,Whole Blood 159 mg/dL (70-110)
[2024-03-10 20:10] LABS: Glucose,Whole Blood 145 mg/dL (70-110)
[2024-03-10] MEDS: HYDROcodone/APAP 5-325MG 1 EACH TAB PO PRN (21:07)
[2024-03-10] MEDS ORDERED: CALCIUM CARBONATE 500 MG CHEWABLE PO PRN (21:38)
[2024-03-11 04:39] VITALS: RESP 18
[2024-03-11 06:00] LABS: Glucose,Whole Blood 122 mg/dL (70-110)
[2024-03-11 07:21] VITALS: BP 115/71; PULSE 67; TEMP 97.9
--- NOTE | 2024-03-11 08:57 | P.PN ---
Subjective Progress Note Date: 03/11/24 Principal diagnosis: C4-7 spondylosis with stenosis Bilateral upper extremity weakness Cervical myelopathy Cervicalgia C2 lesion Patient seen and examined this morning. Patient is sitting up at bedside. Patient did not discharge yesterday due to urinary retention after williamson was discontinued. Patient reports he has been able to urinate on his own throughout the night. Patient does report that his pain is managed on current regimen. Surgical incision to the anterior cervical spine, current dressing does have some shadowing noted. Dressing may be changed prior to discharge. Hard cervical collar is intact. Patient continues to report improvement in his cervical pain and bilateral upper extremity radiculopathy since the procedure. Patient states he is more than ready to go home. Objective - Vital Signs Vital signs: Vital Signs Temp 97.9 F 03/11/24 07:21 Pulse 67 03/11/24 07:21 Resp 18 03/11/24 07:21 BP 115/71 03/11/24 07:21 Pulse Ox 96 03/11/24 07:21 FiO2 Intake & Output 03/10/24 03/11/24 03/11/24 18:59 06:59 18:59 Intake Total 1440 Output Total 1030 400 260 Balance 410 -400 -260 Intake: IV 240 Sodium Chloride 0.9% 1, 240 000 ml @ 20 mls/hr IV . Q24H PENDING SALE TO [facility] Rx#:[id number] Oral 1200 Output: Urine 1030 400 260 Straight 480 Other: Voiding Method Toilet Urinal - Exam Physical Examination General: The patient is awake and alert, in no acute distress Skin: Skin is warm and dry with no obvious rashes or lesions. Surgical incision to the anterior cervical spine, dressing does have some shadowing noted. Dressing may be changed prior to discharge Eye: Pupils are equal, round and reactive to light, extra-ocular movements are intact; there is normal conjunctiva bilaterally. Neck: The neck is supple, there is mild tenderness around the incision site, range of motion is limited due to surgical procedure. Hard cervical collar is intact. Cardiovascular: There is a regular rate and rhythm. No murmur, rub or gallop is appreciated. Respiratory: Respirations are non-labored, breath sounds are equal. Gastrointestinal: Soft, non-distended, non-tender abdomen. Back: There is no tenderness to palpation in the midline, paralumbar, parathoracic or buttocks region. There is no obvious deformity . Musculoskeletal: ROM limited secondary to pain and stiffness from surgical procedure. Right: Shoulder abduction 5/5, elbow flexors 4/5, wrist dorsiflexors 4/5. finger abductor 4/5, director of valuation 5/5, hip flexor 5/5, knee flexor 5/5, ankle dorsiflexor 5/5, ankle plantarflexion 5/5 and extensor hallucis 5/5. Left: Shoulder abduction 5/5, elbow flexors 4/5, wrist dorsiflexors 4/5. finger abductor 4/5, director of valuation 5/5, hip flexor 5/5, knee flexor 5/5, ankle dorsiflexor 5/5, ankle plantarflexion 5/5 and extensor hallucis 5/5. Neurological: CN 2-12 intact. There are no obvious motor or sensory deficits. Movement and coordination equal and intact. Sensory exam to light touch intact C5-T1 and intact from L2-S1. Reflexes 2/4 in bilateral upper and lower extremities. Negative Hoffmans, babinski, and clonus signs. Psychiatric: Cooperative, appropriate mood & affect, normal judgment. - Labs CBC & Chem 7: 03/09/24 06:17 03/09/24 06:17 Labs: Abnormal Lab Results - Last 24 Hours (Table) 03/10/24 03/10/24 03/10/24 Range/Units 11:06 16:21 20:09 POC Glucose (mg/dL) 198 H 159 H 145 H (70-110) mg/dL 03/11/24 Range/Units 05:59 POC Glucose (mg/dL) 122 H (70-110) mg/dL Assessment and Plan Assessment: Postop day 2: C4-C7 ACDF Plan: -Appreciate multi site leasing consultant and team management. -Activity: Ambulate QID, OOB all meals, up and about, limit lifting bending twisting to less than 5 lbs. Use walker or cane if needed for stability. -Daily PT/OT, increase ambulation strength and balance. -Hard cervical collar at all times, patient may remove for showers. -Pain control: Adequate at this time -Meds: reviewed -GI ppx: senna, Miralax -DVT PPX: TEDS -Hygiene: Shower today. Maintain dressing clean and dry. -Encourage IS 10x/hr -Dispo: Discharge home today. *I reviewed and discussed this case with my attending Dr. Smith, whom has reviewed this chart and films and is in agreement with assessment and plan of care as outlined above. I have personally seen and examined the patient, performed the documentation and the assessment and plan as written. Number of minutes spent on the visit: 20m.
--- NOTE | 2024-03-12 09:25 | P.ANPRN ---
Procedure Note - Anesthesia - Invasive Line Right Arterial Line Time Out Performed: Yes Date of Procedure: 03/09/24 Time of Procedure: 07:11 Location of Patient: PreOp Preparation: Sterile Prep, Sterile Dressing Arterial Line Location: Radial Ultrasound Used: No Purpose - Visualization and Identification of Vasculature: No Image Stored and Saved: No Narrative: Invasive line placement per sterile protocol utilized.
== END 2024-03-11 11:09 | disposition home or self-care (01) ==
LOC: OR 05:33 → 4SSUR 10:40 → OR 03-11 11:09
PROVIDERS: ATTEND Orthopaedic Surgery
DX: M47.12 Other spondylosis with myelopathy, cervical region
CPT/HCPCS: 72040; 72125; 80048; 85027; 85610; 85730; 86850; 86900; 86901

== ENCOUNTER 2024-03-13 07:50 | Emergency (ER) | payer MEDICARE ==
[2024-03-13 08:00] VITALS: RESP 18; TEMP 98
--- NOTE | 2024-03-13 08:55 | ED ---
Skin/Abscess/FB HPI - General Chief complaint: Skin/Abscess/Foreign Body Stated complaint: Post Op Comp/Neck Time Seen by Provider: 03/13/24 08:00 Source: patient Mode of arrival: ambulatory Limitations: no limitations - History of Present Illness Initial comments: 73-year-old male presents emergency department with swelling to his surgical site. Patient had recent cervical fusion with an anterior approach on the . He reports that the bandage was supposed to stay on for 3 days. He was then allowed to take it off and shower. States he showered yesterday. The bandage had fallen off and he was concerned that it was too soon. he then placed hydrogen peroxide on the incision site as he did not want to get infected. This morning the patient woke up and noted some puffiness to the left side of his neck. He denies any pustular drainage from the incision. No pain. Family is at bedside and states he has not been compliant with his discharge instructions. He is not wearing his neck brace is much as they told him to. He also has been lifting and bending. Patient denies any difficulty breathing or swallowing. No bleeding from the site. No other alleviating, precipitating or modifying factors - Related Data Home Medications Medication Instructions Recorded Confirmed Pantoprazole [Protonix] 40 mg PO DAILY 08/31/18 03/09/24 Rosuvastatin [Crestor] 5 mg PO DAILY 08/31/18 03/09/24 carvediloL [Coreg] 6.25 mg PO BID 08/31/18 03/09/24 lisinopriL [Prinivil] 5 mg PO DAILY 08/31/18 03/09/24 Empagliflozin [Jardiance] 10 mg PO DAILY 03/08/24 03/09/24 Ferrous Sulfate [Iron] 325 mg PO BID 03/08/24 03/09/24 Ferrous Sulfate [Iron] 325 mg PO HS 03/08/24 03/09/24 Gabapentin 300 mg PO BID 03/08/24 03/09/24 metFORMIN HCL [Glucophage] 500 mg PO BID 03/08/24 03/09/24 Previous Rx's Medication Instructions Recorded Cyclobenzaprine [Flexeril] 5 mg PO TID PRN #40 tablet 03/10/24 Gabapentin 300 mg PO TID #90 cap 03/10/24 HYDROcodone/APAP 7.5-325MG [[place] 1 each PO Q6HR PRN #42 tab 03/10/24 7.5] Sennosides/Docusate Sodium [[place] 1 each PO DAILY PRN #20 tab 03/10/24 Plus 8.6-50 mg Tablet] cefaDROXiL [Duricef] 500 mg PO Q12HR #10 cap 03/10/24 Allergies Allergy/AdvReac Type Severity Reaction Status Date / Time aspirin Allergy sneezing & Verified 03/13/24 08:00 runny nose. NSAIDS (Non-Steroidal AdvReac Unknown Verified 03/13/24 08:00 Anti-Inflamma Review of Systems ROS Statement: Those systems with pertinent positive or pertinent negative responses have been documented in the HPI. ROS Other: All systems not noted in ROS Statement are negative. Past Medical History Past Medical History: GERD/Reflux, Hypertension, Renal Disease History of Any Multi-Drug Resistant Organisms: None Reported Past Surgical History: Hernia Repair, Joint Replacement, Orthopedic Surgery Additional Past Surgical History / Comment(s): right testical removed, hiatle hernia repair, cervial surgery 02/2024. Past Psychological History: No Psychological Hx Reported Smoking Status: Never smoker Past Alcohol Use History: None Reported Past Drug Use History: None Reported General Exam Limitations: no limitations General appearance: alert, in no apparent distress Head exam: Present: atraumatic, normocephalic, normal inspection Eye exam: Present: normal appearance, PERRL, EOMI. Absent: scleral icterus, conjunctival injection, periorbital swelling ENT exam: Present: normal exam, mucous membranes moist Neck exam: Present: other (Incision over the right neck. Incision is intact with sutures. Dermabond is overlying the suture line. No bleeding. There is some induration surrounding the lateral half of the incision.). Absent: tenderness, meningismus, lymphadenopathy Respiratory exam: Present: normal lung sounds bilaterally. Absent: respiratory distress, wheezes, rales, rhonchi, stridor Cardiovascular Exam: Present: regular rate, normal rhythm, normal heart sounds. Absent: systolic murmur, diastolic murmur, rubs, gallop, clicks GI/Abdominal exam: Present: soft, normal bowel sounds. Absent: distended, tenderness, guarding, rebound, rigid Extremities exam: Present: normal inspection, full ROM, normal capillary refill. Absent: tenderness, pedal edema, joint swelling, calf tenderness Back exam: Present: normal inspection Neurological exam: Present: alert, oriented X3, CN II-XII intact Psychiatric exam: Present: normal affect, normal mood Skin exam: Present: warm, dry, intact, normal color. Absent: rash Course Vital Signs 03/13/24 03/13/24 07:54 09:12 Temperature 98 F Pulse Rate 92 90 Respiratory 18 18 Rate Blood Pressure 154/99 144/78 O2 Sat by Pulse 96 98 Oximetry Medical Decision Making - Medical Decision Making Was pt. sent in by a medical professional or institution (, MAR[employer]A, COMPUTER SYSTEM SPECIALIST, urgent care, hospital, or retirement...) When possible be specific @ -No Did you speak to anyone other than the patient for history (EMS, parent, family, police, friend...)? What history was obtained from this source @ -Spoke with patient's family members for history Did you review nursing and triage notes (agree or disagree)? Why? @ -I reviewed and agree with nursing and triage notes Were old charts reviewed (outside hosp., previous admission, EMS record, old EKG, old radiological studies, urgent care reports/EKG's, retirement records)? Report findings @ -I reviewed the operative report from March 09 Differential Diagnosis (chest pain, altered mental status, abdominal pain women, abdominal pain men, vaginal bleeding, weakness, fever, dyspnea, syncope, headache, dizziness, GI bleed, back pain, seizure, CVA, palpatations, mental health, musculoskeletal)? @ -Infection, bleeding, wound dehiscence EKG interpreted by me (3pts min.). @ -Not done X-rays interpreted by me (1pt min.). @ -None done CT interpreted by me (1pt min.). @ -None done U/S interpreted by me (1pt. min.). @ -None done What testing was considered but not performed or refused? (CT, X-rays, U/S, labs)? Why? @ -None What meds were considered but not given or refused? Why? @ -None Did you discuss the management of the patient with other professionals (professionals i.e. , MAR[employer]A, COMPUTER SYSTEM SPECIALIST, lab, RT, psych nurse, social media job titles, scarrer, teacher, biological technical officer, rehabilitation caseworker)? Give summary @ -Spoke with the PA for Dr. Fong seen. He does present to the emergency department and evaluate the patient Was smoking cessation discussed for >3mins.? @ -No Was critical care preformed (if so, how long)? @ -No Were there social determinants of health that impacted care today? How? (Homelessness, low income, unemployed, alcoholism, drug addiction, transportation, low edu. Level, literacy, decrease access to med. care, correction, rehab)? @ -No Was there de-escalation of care discussed even if they declined (Discuss DNR or withdrawal of care, Hospice)? DNR status @ -No What co-morbidities impacted this encounter? (DM, HTN, Smoking, COPD, CAD, Cancer, CVA, ARF, Chemo, Hep., AIDS, mental health diagnosis, sleep apnea, morbid obesity)? @ -None Was patient admitted / discharged? Hospital course, mention meds given and route, prescriptions, significant lab abnormalities, going to OR and other pertinent info. @ -Upon arrival patient seen and evaluated in room 27. Thorough history and physical exam was performed. I did call and speak with the on-call orthopedic PA. He does present to the emergency department and evaluates the patient. He does not feel that there is any evaluation needed to the patient's incision. He is to place warm compresses the site. He must absolutely wear his brace. No heavy lifting or bending. The family at bedside is very aware of what the patient needs to do. It is suggested to the patient that he listen to his family members. Return should he have any worsening symptoms such as bleeding or pustular drainage from the site. Patient agreeable plan was discharged in stable condition Undiagnosed new problem with uncertain prognosis? @ -No Drug Therapy requiring intensive monitoring for toxicity (Heparin, Nitro, Insulin, Cardizem)? @ -No Were any procedures done? @ -No Diagnosis/symptom? @ -Acute swelling to surgical incision Acute, or Chronic, or Acute on Chronic? @ -Acute Uncomplicated (without systemic symptoms) or Complicated (systemic symptoms)? @ -Uncomplicated Side effects of treatment? @ -No Exacerbation, Progression, or Severe Exacerbation? @ -No Poses a threat to life or bodily function? How? (Chest pain, [place], [place], pneumonia, PE, COPD, DKA, ARF, appy, cholecystitis, CVA, Diverticulitis, Homicidal, Suicidal, threat to staff... and all critical care pts) @ -No Disposition Clinical Impression: Cervical stenosis of spine Disposition: HOME SELF-CARE Condition: Stable Additional Instructions: You need to wear your brace. Do not bend or lift until cleared by surgeon. Place ice to the site for 20 minutes, at least 4 times a day. Return to the emergency department or call your surgeon if you have redness, pain, pustular drainage or difficulty breathing. Is patient prescribed a controlled substance at d/c from ED?: No Referrals: Angelito Johns DO [Primary Care Provider] - 1-2 days Vineet Smith DO [Doctor of Osteopathic Medicine] - 1-2 days Time of Disposition: 08:55
[2024-03-13 09:13] VITALS: BP 144/78; PULSE 90
== END 2024-03-13 09:16 | disposition home or self-care (01) ==
LOC: EC 07:50
CPT/HCPCS: 99283

== ENCOUNTER → 2024-11-12 | Outpatient (CLI) | payer MEDICARE ==
[2024-11-12 09:18] LABS: Creatinine,Urine Random 74.1 mg/dL; Protein/Creatinine Ratio,Urine 0.337
[2024-11-12 10:21] LABS: Basophils # (A) 0.06 X 10*3/uL (0.00-0.10); Basophils % (A) 0.4 %; Eosinophils # (A) 0.18 X 10*3/uL (0.04-0.35); Eosinophils % (A) 1.3 %; HCT 50.2 % (39.6-50.0); HGB 16.3 g/dL (13.0-17.0); Lymphocytes # (A) 1.62 X 10*3/uL (0.90-5.00); Lymphocytes % (A) 11.3 %; MCH 29.5 pg (27.0-32.0); MCHC 32.5 g/dL (32.0-37.0); MCV 90.9 FL (80.0-97.0); Mean Platelet Volume 11.3 FL (9.5-12.2); Monocytes # (A) 0.89 X 10*3/uL (0.20-1.00); Monocytes % (A) 6.2 %; NRBC Per 100 WBC 0 X 10*3/uL (0.00-0.01); Neutrophils # (A) 11.56 X 10*3/uL (1.80-7.70); Neutrophils % (A) 80.4 %; Platelet Count 168 X 10*3/uL (140-440); RBC 5.52 X 10*6/uL (4.40-5.60); RDW 13.7 % (11.5-14.5); WBC 14.37 X 10*3/uL (4.50-10.00)
[2024-11-12 10:44] LABS: % Iron Saturation 17.99 (15.00-50.00); Albumin 4.3 g/dL (3.8-4.9); BUN/Creat Ratio 15.38 Ratio (12.00-20.00); Blood Urea Nitrogen 32.3 mg/dL (9.0-27.0); Carbon Dioxide 19.4 mmol/L (21.6-31.8); Chloride 103 mmol/L (96-109); Ferritin 45.9 ng/mL (22.0-322.0); Glucose 205 mg/dL (70-110); Iron 70 UG/DL (65-175); Magnesium 2.2 mg/dL (1.5-2.4); Phosphorus 3.5 mg/dL (2.4-5.1); Potassium 4.7 mmol/L (3.5-5.5); Sodium 138 mmol/L (135-145); Total Iron Binding Capacity 389 UG/DL (228-460); Uric Acid 7.2 mg/dL (3.7-8.7)
[2024-11-12 16:18] LABS: Appearance,Urine Clear (Clear); Bilirubin,Urine Negative (Negative); Blood,Urine Negative (Negative); Color,Urine Yellow (Yellow); Ketones,Urine Negative (Negative); Nitrite,Urine Negative (Negative); PH, Urine 5.5; Urobilinogen,Urine 0.2 E.U./DL
== END | disposition home or self-care (01) ==
LOC: LABWHC1 07:56
PROVIDERS: ATTEND Nurse Practitioner Family
DX: E55.9 Vitamin D deficiency, unspecified (principal); N18.32 Chronic kidney disease, stage 3b; D63.1 Anemia in chronic kidney disease; N25.81 Secondary hyperparathyroidism of renal origin; M10.9 Gout, unspecified; N39.0 Urinary tract infection, site not specified; R80.9 Proteinuria, unspecified
CPT/HCPCS: 36415; 80048; 81003; 82040; 82306; 82570; 82728; 83540; 83550; 83735; 83970; 84100; 84156; 84550; 85025